=== PATIENT | female | born 1950 | race Caucasian/White ===

== ENCOUNTER 2016-10-19 14:57 | Emergency (ER) | payer MEDICARE, BC, MEDICAID ==
[2016-10-19] MEDS ORDERED: NORMAL SALINE 1000 ML 1,000 ML IV ONE (15:14)
[2016-10-19] MEDS ORDERED: ONDANSETRON HCL INJ/PF 4 MG/2 ML SDV IV ONE (15:14)
--- NOTE | 2016-10-19 15:21 | ER Document Report ---
ED General - General Chief Complaint: Nausea Stated Complaint: NAUSEA/VOMITING Time seen by provider: 15:00 Mode of Arrival: Medic Information source: Patient, Emergency Med Personnel Notes: 66-year-old female resident [facility] local penit[facility] who was sent from the penitentiary with report given to EMS personnel of 2 days of fever vomiting and altered level of consciousness. On arrival here the patient is awake and alert minimally verbal but does follow commands and move her head indicate yes and no and in appropriate fashion. To this examiner she denies fever, vomiting, chest pain, abdominal pain, or back pain. I do believe she is able to accurately convey other review of systems guarding recent events as well Physical Exam: General: Alert, appears well. HEENT: Normocephalic. Atraumatic. PERRLA. Extraocular movements intact. Oropharynx clear. Dry mucous membranes Neck: Supple. Non-tender. No JVD Respiratory: No respiratory distress. Clear and equal breath sounds bilaterally. Cardiovascular: Regular rate and rhythm. Abdominal: Normal Inspection. Soft, non-tender. No distension. Normal Bowel Sounds. One feeding tube in place to the right upper abdomen. There is an area in the left upper abdomen that may represent a recently removed tube Back: Non-tender. No deformity or step off. Sacral decubitus with dried and clean dressing in place no surrounding erythema suggest deeper infection Extremities: Contractures noted to both upper extremities. Passive range of motion is somewhat limited due to stiffness in all 4 extremities but this does not seem to produce any pain in the patient. Neurological: No cranial nerve deficits appreciated. Patient can in a garbled fashion report her name. She does move toes on both sides to command. Psychological: Normal affect. Normal Mood. Skin: Warm. Dry. Normal color. TRAVEL OUTSIDE OF THE [place] IN LAST 30 DAYS: No - Related Data Allergies/Adverse Reactions: Penicillins Allergy (Verified 08/23/16 03:50) heparin Adverse Reaction (Severe, Verified 08/28/16 14:55) Thrombocytopenia Past Medical History - Social History Smoking Status: Unknown if Ever Smoked Family History: Reviewed & Not Pertinent, Other - Unable to obtain - Past Medical History Cardiac Medical History: Reports: Hx Atrial Fibrillation, Hx Coronary Artery Disease, Hx Hypercholesterolemia, Hx Hypertension Denies: Hx Heart Attack Pulmonary Medical History: Reports: Hx Pneumonia Denies: Hx Asthma, Hx Bronchitis, Hx COPD, Hx Tuberculosis Neurological Medical History: Reports: Hx Cerebrovascular Accident. Denies: Hx Seizures Endocrine Medical History: Reports: Hx Diabetes Mellitus Type 2. Denies: Hx Diabetes Mellitus Type 1 Renal/ Medical History: Reports: Hx Kidney Stones GI Medical History: Reports: Hx Diverticulitis, Hx Gastroesophageal Reflux Disease Musculoskeltal Medical History: Reports Hx Arthritis Psychiatric Medical History: Reports: Hx Depression Past Surgical History: Reports: Hx Abdominal Surgery - PEG tube and J-tube placement, Other - G-tube, open jejunostomy tube placement. Denies: Hx Hysterectomy - Immunizations Hx Diphtheria, Pertussis, Tetanus Vaccination: No Review of Systems - Review of Systems Constitutional: denies: Chills, Fever EENT: denies: Ear pain, Throat pain Cardiovascular: denies: Chest pain Respiratory: denies: Cough, Short of breath Gastrointestinal: denies: Abdominal pain, Nausea, Vomiting Genitourinary: denies: Frequency Female Genitourinary: Post menopausal Musculoskeletal: denies: Back pain Hematologic/Lymphatic: denies: Swollen glands Neurological/Psychological: Weakness Course - Re-evaluation Re-evalutation: 10/19/16 18:34 10/19/16 18:35 Records from a recent admission are reviewed and patient spell status appears to be at her baseline. She's had no vomiting here has no fever here and has a benign abdominal exam. On her last admission was some concern about GI bleed with hemoglobin here is acceptable and on her last admission she does not seem to be a candidate for any type of aggressive intervention in any case. Patient refused CT abdomen and pelvis here and I assess her neurologic status is being adequate to be competent for that. Patient appears to be at her baseline and I believe stable for return to penitentiary - Laboratory Result Diagrams: 10/19/16 16:16 10/19/16 16:16 Laboratory results interpreted by me: 10/19/16 10/19/16 16:16 16:16 WBC 13.2 H RDW 15.0 H Absolute Neutrophils 8.9 H Sodium 146.9 H BUN 35 H Glucose 121 H - EKG Interpretation by Me Additional EKG results interpreted by me: 10/19/16 18:33 Old records from her recent admission are reviewed and patient's mental status appears to be at her baseline as described in those notes. Patient is nodding and shaking her head appropriately and based on that has refused CT abdomen and pelvis. There is some concern about GI bleeding on her last admission but her hemoglobin is acceptable now. She has a benign abdominal exam and laboratory workup has otherwise been unremarkable. The patient appears to be at her baseline Discharge - Discharge Clinical Impression: Hypernatremia CVA (cerebral vascular accident) Qualifiers: CVA mechanism: unspecified Qualified Code(s): I63.9 - Cerebral infarction, unspecified Vomiting Qualifiers: Vomiting type: unspecified Vomiting Intractability: non-intractable Condition: Stable Disposition: HOME-SNF (ED ONLY) Referrals: FELICIA TANNER MD [COMMUNITY BASED STAFF] - Follow up as needed
[2016-10-19 16:41] LABS: ABSOLUTE BASOPHILS # (AUTO) 0.1 10^3/uL (0.0-0.2); ABSOLUTE LYMPHOCYTES (AUTO) 3.2 10^3/uL (0.5-4.7); ABSOLUTE MONOCYTES (AUTO) 1.1 10^3/uL (0.1-1.4); ABSOLUTE NEUT (AUTO) 8.9 10^3/uL (1.7-8.2); BASOPHILS % (AUTO) 0.5 % (0-2); EOSINOPHILS % (AUTO) 0.2 % (0-6); HEMATOCRIT 37.4 % (36.0-47.0); HEMOGLOBIN 12.3 g/dL (12.0-15.5); HGB HCT DIFFERENCE -0.5; LYMPHOCYTES % (AUTO) 24.2 % (13-45); MEAN CORPUSCULAR HEMOGLOBIN 29.5 pg (27.0-33.4); MEAN CORPUSCULAR HGB CONC 32.8 g/dL (32.0-36.0); MEAN CORPUSCULAR VOLUME 90 fl (80-97); RED BLOOD COUNT 4.16 10^6/uL (3.72-5.28); SEGMENTED NEUTROPHILS % (AUTO) 67.1 % (42-78); WHITE BLOOD COUNT 13.2 10^3/uL (4.0-10.5)
[2016-10-19 16:55] LABS: ALANINE AMINOTRANSFERASE 19 U/L (9-52); ALBUMIN 4.5 g/dL (3.5-5.0); ALKALINE PHOSPHATASE 110 U/L (38-126); ANION GAP 14 (5-19); ASPARTATE AMINO TRANSFERASE 24 U/L (14-36); BILIRUBIN,TOTAL 0.5 mg/dL (0.2-1.3); BLOOD UREA NITROGEN 35 mg/dL (7-20); CALCIUM 10.2 mg/dL (8.4-10.2); CARBON DIOXIDE 30 mmol/L (22-30); CHLORIDE 103 mmol/L (98-107); CREATININE RESULT 0.58 mg/dL (0.52-1.25); GLUCOSE 121 mg/dL (75-110); MAGNESIUM 2.1 mg/dL (1.6-2.3); POTASSIUM 3.7 mmol/L (3.6-5.0); SODIUM 146.9 mmol/L (137-145); TOTAL PROTEIN 7.7 g/dL (6.3-8.2)
[2016-10-19 23:09] VITALS: BP 149/64
== END 2016-10-19 23:30 ==
LOC: ER 14:57
DX: I63.9 Cerebral infarction, unspecified (principal); E87.0 Hyperosmolality and hypernatremia; R11.2 Nausea with vomiting, unspecified; I48.91 Unspecified atrial fibrillation; I25.10 Atherosclerotic heart disease of native coronary artery without angina pectoris; E78.00 Pure hypercholesterolemia, unspecified; I10 Essential (primary) hypertension; Z86.73 Personal history of transient ischemic attack (TIA), and cerebral infarction without residual deficits; Z88.0 Allergy status to penicillin; Z87.442 Personal history of urinary calculi; E11.9 Type 2 diabetes mellitus without complications; Z93.1 Gastrostomy status; Z93.4 Other artificial openings of gastrointestinal tract status
CPT/HCPCS: 99283; 96361; 96374; 36415; 87040; 83690; 83735; 85025; 80053; J2405; J7030

== ENCOUNTER 2016-11-13 13:20 | Emergency (ER) | payer MEDICARE, BC, MEDICAID ==
[2016-11-13] MEDS ORDERED: NORMAL SALINE 1000 ML 1,000 ML IV ONE (15:13)
--- NOTE | 2016-11-13 17:42 | ER Document Report ---
ED General - General Chief Complaint: Rash Stated Complaint: RASH TRAVEL OUTSIDE OF THE [place] IN LAST 30 DAYS: No - HPI Patient complains to provider of: rash Notes: Patient coming in [facility] for evaluation of her rash on her lower extremities. According to nursing paperwork lab work was performed today patient was started on Levaquin which was administered through her feeding tube. Apparently patient had a rash develop further this morning. Patient has history multiple CVAs also nonverbal. Patient otherwise has normal vital signs no signs of obvious distress upon entering the room - Related Data Allergies/Adverse Reactions: Penicillins Allergy (Verified 08/23/16 03:50) heparin Adverse Reaction (Severe, Verified 08/28/16 14:55) Thrombocytopenia Past Medical History - Social History Smoking Status: Unknown if Ever Smoked Family History: Reviewed & Not Pertinent, Other - Unable to obtain - Past Medical History Cardiac Medical History: Reports: Hx Atrial Fibrillation, Hx Coronary Artery Disease, Hx Hypercholesterolemia, Hx Hypertension Denies: Hx Heart Attack Pulmonary Medical History: Reports: Hx Pneumonia Denies: Hx Asthma, Hx Bronchitis, Hx COPD, Hx Tuberculosis Neurological Medical History: Reports: Hx Cerebrovascular Accident. Denies: Hx Seizures Endocrine Medical History: Reports: Hx Diabetes Mellitus Type 2. Denies: Hx Diabetes Mellitus Type 1 Renal/ Medical History: Reports: Hx Kidney Stones GI Medical History: Reports: Hx Diverticulitis, Hx Gastroesophageal Reflux Disease Musculoskeltal Medical History: Reports Hx Arthritis Psychiatric Medical History: Reports: Hx Depression Past Surgical History: Reports: Hx Abdominal Surgery - PEG tube and J-tube placement, Other - G-tube, open jejunostomy tube placement. Denies: Hx Hysterectomy - Immunizations Hx Diphtheria, Pertussis, Tetanus Vaccination: No Review of Systems - Review of Systems -: Yes ROS unobtainable due to patient's medical condition Physical Exam - Vital signs Vitals: Temp Pulse Resp BP Pulse Ox 97.7 F 77 20 105/40 L 96 11/13/16 13:25 11/13/16 13:25 11/13/16 13:25 11/13/16 13:25 11/13/16 13:25 Interpretation: Normal - General General appearance: Alert, Other - Nonverbal - HEENT Head: Normocephalic, Atraumatic Eyes: Normal - Respiratory Respiratory status: No respiratory distress Chest status: Nontender Breath sounds: Normal Chest palpation: Normal - Cardiovascular Rhythm: Regular Heart sounds: Normal auscultation Murmur: No - Abdominal Inspection: Normal Distension: No distension Bowel sounds: Normal Tenderness: Nontender Organomegaly: No organomegaly - Back Back: Normal, Nontender - Extremities General upper extremity: Normal inspection, Nontender, Normal color, Normal ROM , Normal temperature General lower extremity: Normal inspection, Nontender, Normal color, Normal ROM , Normal temperature, Normal weight bearing. No: Regine's sign - Neurological Neuro grossly intact: Yes - normal per family at bedside Sensory: Normal - Skin Skin Temperature: Warm Skin Moisture: Dry Skin Color: Normal Character of irregularity: Other - Patient has bilateral hives and posterior of her legs. More likely this is from contact with a irritant. Course - Re-evaluation Re-evalutation: 11/13/16 20:35 Patient with hives more likely from contact with them irritant. Family at bedside explained more likely due to possible bedsheets and possibly the patient sitting in a wet bed. Nothing this is a drug rash at this time. Lab work was reviewed showing some acute renal insufficiency. More likely this is due to dehydration as to the family states they have held the patient's 2 feeds for the last 3 days. We'll discharge patient home after IV fluid boluses. Otherwise no signs of sepsis patient will be discharged home - Vital Signs Vital signs: Temp Pulse Resp BP Pulse Ox 98.8 F 82 14 117/41 L 100 11/13/16 20:03 11/13/16 20:03 11/13/16 20:03 11/13/16 20:03 11/13/16 20:03 Discharge - Discharge Clinical Impression: acute renal insufficiency/ dehydration, Do not resuscitate Contact dermatitis Qualifiers: Contact dermatitis type: unspecified Contact dermatitis trigger: unspecified trigger Qualified Code(s): L25.9 - Unspecified contact dermatitis, unspecified cause Condition: Good Disposition: HOME, SELF-CARE Instructions: Acute Urticaria ([facility]) Additional Instructions: Patient's lab work reviewed. Patient does have an elevation in her BUN/ creatinine more likely this is due to dehydration. Family members report that the patient's tooth these have been on hold for last 3 days. These recommend restarting tube feeds pain given the patient plenty of fluids through her tubes. Patient was hydrated here in ER with IV fluids. Of rash is consistent with a contact dermatitis. This is possibly from patient urinating or sitting in wet bedsheets or possible that she detergent. Otherwise not consistent with drug reaction. Please continue to follow-up on patient's cultures.
[2016-11-13 20:06] VITALS: BP 117/41
== END 2016-11-13 22:22 | disposition home or self-care (01) ==
LOC: ER 13:20
DX: N28.9 Disorder of kidney and ureter, unspecified (principal); E86.0 Dehydration; L25.9 Unspecified contact dermatitis, unspecified cause; R21 Rash and other nonspecific skin eruption
CPT/HCPCS: 99284; 96360; 87804; 71010; J7030

== ENCOUNTER 2016-11-24 09:30 | Day surgery (SDC) | payer MEDICARE, BC, MEDICAID ==
--- NOTE | 2016-11-20 11:03 | PDOC PROGRESS REPORT ---
Subjective Progress Note for:: 11/20/16 Subjective:: Patient was seen in the office, she was scheduled for EGD with PEG change. We obtained consent from POA via a phone call. Her POA is her daughter, she is in another [place] She gave consent via the phone that was witnessed by 2 individuals. She told her aunt ( patient's sister) to sign the consent form; later on , it came to our attention and the aunt rescinded her signature. [facility] was called and we were going to obtain consent directly from POA on day of procedure. Instructions were provided to group home with regards to NPO status, time of arrival in the pre- procedure phone call that was made by Faiza Fuller RN. This was similarly witnessed. Patient was sent in today and we were informed that tube feedings had not been stopped. We are therefore unable to proceed with the procedure today and it will need to be rescheduled. Physical Exam Vital Signs: Intake & Output 11/19/16 11/20/16 11/21/16 06:59 06:59 06:59 Weight 66.68 kg Assessment & Plan - Diagnosis (1) Malfunction of percutaneous endoscopic gastrostomy (PEG) tube Plan: We will need to reschedule her procedure. The tube certainly looks worse for wear,it is still able to be used this is non emergent, instructions will be re-provided to the group home.
[~2016-11-24 09:30] MED LIST: DIPHENHYDRAMINE HCL 50 MG/ML VIAL ONE; EPINEPHRINE INJ 1 MG/10 ML DISP.SYRIN ONE; FENTANYL CITRATE INJ/PF 100 MCG/2 ML AMPUL ONE; FLUMAZENIL INJ 0.5 MG/5 ML VIAL IV ONE; GLUCAGON,HUMAN RECOMB 1 MG INJ ONE; NALOXONE HCL INJ/PF 0.4 MG/1 ML SDV ONE; ONDANSETRON HCL INJ/PF 4 MG/2 ML SDV ONE; PROMETHAZINE HCL INJ 25 MG/1 ML VIAL ONE
[2016-11-24] MEDS: MIDAZOLAM 2 MG/2 ML INJ ONE ×2 (10:35→10:40)
--- NOTE | 2016-11-24 11:00 | Operative Report ---
Operative Report DATE OF SURGERY: 11/24/16 Operative Report: The risks benefits and alternatives of the procedure explained to the patient in detail and informed consent is obtained that GIF Olympus video scope was inserted into the patient's mouth and hypopharynx the esophagus is identified intubated and insufflated the scope was then advanced through the esophagus stomach and duodenum retroflexion maneuver is done the esophagus stomach and first and second portions of the duodenum examined PREOPERATIVE DIAGNOSIS: Dysfunctional feeding tube. Patient scheduled for potential mash filter cloth changer. POSTOPERATIVE DIAGNOSIS: Patient has a jejunostomy tube. The tube that is present is not within the gastric cavity. I was not able to find the and of the tube. It appears that it was previously change by interventional radiology under radiographic guidance. The area of the jejunostomy stoma was cleaned. The original jejunostomy tube is kept in place OPERATION: Diagnostic EGD SURGEON: CASEY MANNING ANESTHESIA: Moderate Sedation - 3 mg Versed TISSUE REMOVED OR ALTERED: None. COMPLICATIONS: None ESTIMATED BLOOD LOSS: none. INTRAOPERATIVE FINDINGS: Gastritis. Jejunostomy site and jejunostomy tube left intact. This could be changed with interventional radiology with potential guidewire along with radiographic guidance. PROCEDURE: Patient tolerated the endoscopic part of the procedure well No immediate postprocedure complications are noted. Patient is discharged back to the retirement. Discharge date 11/24/2016. Discharge diet: Resume feeds through jejunostomy tube Discharge activity: As tolerated shelter physician will need to get consultation with interventional radiology to arrange changing of the jejunostomy tube under radiographic guidance ;the tube will also need to be pre-ordered.
[2016-11-24 11:53] VITALS: BP 150/49
== END 2016-11-24 13:00 | disposition home or self-care (01) ==
LOC: END 09:30
PROVIDERS: ATTEND Internal Medicine Gastroenterology
PROC: 0DJD8ZZ Inspection of Lower Intestinal Tract, Via Natural or Artificial Opening Endoscopic (ICD-10-PCS; principal; 2016-11-24 10:00)
DX: K94.23 Gastrostomy malfunction (principal); I10 Essential (primary) hypertension; E11.9 Type 2 diabetes mellitus without complications; Z86.73 Personal history of transient ischemic attack (TIA), and cerebral infarction without residual deficits; Z79.899 Other long term (current) drug therapy
CPT/HCPCS: 43235; 82962; J2250; J3010; J0171; J1200; J1610; J2310; J2405; J2550; J3490

== ENCOUNTER 2016-12-02 12:57 | Inpatient (IN) | payer MEDICARE, BC, MEDICAID ==
[2016-12-02 16:12] LABS: ABSOLUTE BASOPHILS # (AUTO) 0.1 10^3/uL (0.0-0.2); ABSOLUTE EOSINOPHILS # (AUTO) 0.5 10^3/uL (0.0-0.6); ABSOLUTE LYMPHOCYTES (AUTO) 3.2 10^3/uL (0.5-4.7); ABSOLUTE MONOCYTES (AUTO) 0.7 10^3/uL (0.1-1.4); ABSOLUTE NEUT (AUTO) 7.5 10^3/uL (1.7-8.2); BASOPHILS % (AUTO) 0.5 % (0-2); EOSINOPHILS % (AUTO) 3.9 % (0-6); HEMATOCRIT 36.2 % (36.0-47.0); HEMOGLOBIN 11.6 g/dL (12.0-15.5); HGB HCT DIFFERENCE -1.4; LYMPHOCYTES % (AUTO) 26.8 % (13-45); MEAN CORPUSCULAR HEMOGLOBIN 30.3 pg (27.0-33.4); MEAN CORPUSCULAR HGB CONC 32.1 g/dL (32.0-36.0); MEAN CORPUSCULAR VOLUME 94 fl (80-97); MONOCYTES % (AUTO) 5.5 % (3-13); RED BLOOD COUNT 3.84 10^6/uL (3.72-5.28); RED CELL DISTRIBUTION WIDTH 16.1 % (11.5-14.0); SEGMENTED NEUTROPHILS % (AUTO) 63.3 % (42-78); WHITE BLOOD COUNT 11.9 10^3/uL (4.0-10.5)
[2016-12-02 16:32] LABS: ALANINE AMINOTRANSFERASE 19 U/L (9-52); ALBUMIN 3.6 g/dL (3.5-5.0); ALKALINE PHOSPHATASE 80 U/L (38-126); ANION GAP 11 (5-19); ASPARTATE AMINO TRANSFERASE 17 U/L (14-36); BILIRUBIN,TOTAL 0.4 mg/dL (0.2-1.3); BLOOD UREA NITROGEN 43 mg/dL (7-20); CALCIUM 9.4 mg/dL (8.4-10.2); CARBON DIOXIDE 31 mmol/L (22-30); CHLORIDE 123 mmol/L (98-107); CREATININE RESULT 0.36 mg/dL (0.52-1.25); GLUCOSE 134 mg/dL (75-110); POTASSIUM 3.7 mmol/L (3.6-5.0); SODIUM 164.8 mmol/L (137-145)
[2016-12-02 16:44] LABS: TROPONIN I 0.025 ng/mL
[2016-12-02 17:01] LABS: APPEARANCE,URINE CLOUDY; BILIRUBIN,URINE NEGATIVE (NEGATIVE); GLUCOSE, URINE NEGATIVE (NEGATIVE); KETONES,URINE NEGATIVE (NEGATIVE); LEUKOCYTE ESTERASE,URINE MODERATE (NEGATIVE); NITRITE,URINE NEGATIVE (NEGATIVE); PROTEIN,URINE 100 mg/dL (NEGATIVE); URINE SPECIFIC GRAVITY 1.017; UROBILINOGEN,URINE NEGATIVE mg/dL (<2.0)
[2016-12-02] MEDS ORDERED: CEFTRIAXONE INJ 1000 MG VIAL IV ONE (20:31)
--- NOTE | 2016-12-02 20:34 | ER Document Report ---
[id number] Information source: Outside Facility Records TRAVEL OUTSIDE OF THE [place] IN LAST 30 DAYS: No - HPI Patient complains to provider of: Other - hematuria Onset: This afternoon Associated symptoms: Other - see above <DEJAN ACEVES - Last Filed: 12/07/16 15:00> - General Chief Complaint: Blood in Catheter Stated Complaint: URINARY PROBLEM Notes: 66 year old female with history of a CVA (patient is non-verbal) presents to the ED via [facility] from [facility] with almost "black" urine as reported from the [facility] nurse. When asked if the patient is sick, if she is in any pain, and if she knows where she is, the patient nods yes. Patient's primary care provider is Dr. Riddle. A comprehensive HPI is unobtainable secondary to the patient's status. (DEJAN ACEVES) - Related Data Allergies/Adverse Reactions: Penicillins Allergy (Intermediate, Verified 11/24/16 09:43) Unknown reaction heparin Adverse Reaction (Severe, Verified 11/19/16 15:41) Thrombocytopenia Home Medications: Current Home Medications Amlodipine Besylate [Norvasc 10 mg Tablet] 10 mg JT DAILY 12/03/16 [History] Aspirin [Aspirin 81 mg Chewable Tablet] 81 mg JT DAILY 12/03/16 [History] Carvedilol [Coreg 25 mg Tablet] 25 mg JT Q12 12/03/16 [History] Clonidine HCl [Catapres 0.3 mg Tablet] 0.3 mg JT Q8 12/03/16 [History] Collagenase Clostridium Hist. [Santyl Ointment 30 gm] 1 applic TOP DAILYP PRN [History] Ferrous Sulfate [Ferrous Sulfate Liquid 300 mg/5 ml Udcup] 300 mg JT BID [History] Hydralazine HCl [Apresoline 50 mg Tablet] 150 mg JT Q8 12/03/16 [History] Insulin Aspart [Novolog Insulin (Aspart) 100 unit/mL] 0 unit SQ .PERSLIDINGSCALE 12/03/16 [History] Lactulose [Cephulac Syrup 20 gm/30 ml Udcup] 10 gm JT QHS 12/03/16 [History] Lansoprazole [Prevacid 30 mg Odt Tablet] 30 mg JT BID 12/03/16 [History] Lorazepam [Ativan 0.5 mg Tablet] 0.5 mg JT Q4HP PRN 12/03/16 [History] Losartan Potassium [Cozaar 100 mg Tablet] 100 mg JT DAILY 12/03/16 [History] Metformin HCl [Glucophage] 500 mg JT Q12 12/03/16 [History] Multivitamin [Multivitamins] 1 each JT DAILY 12/03/16 [History] Ondansetron HCl [Zofran] 4 mg JT Q6HP PRN 12/03/16 [History] Oxycodone HCl [Oxy-Ir 5 mg Tablet] 5 mg PO Q6HP PRN 12/03/16 [History] Polyvinyl Alcohol [Liquitears] 1 drop OU BID 12/03/16 [History] Protein Supplement [Promod] 30 ml JT Q8 12/03/16 [History] Past Medical History - General Information source: Outside Facility Records - Social History Smoking Status: Unknown if Ever Smoked Family History: Reviewed & Not Pertinent, Other - Unable to obtain - Past Medical History Cardiac Medical History: Reports: Hx Atrial Fibrillation, Hx Hypercholesterolemia, Hx Hypertension Denies: Hx Coronary Artery Disease, Hx Heart Attack Pulmonary Medical History: Reports: Hx Pneumonia Denies: Hx Asthma, Hx Bronchitis, Hx COPD, Hx Tuberculosis Neurological Medical History: Reports: Hx Cerebrovascular Accident - HEMIPARESIS , APHASIA, DYSPHAGIA, HEMIPLAGIA. Denies: Hx Seizures Endocrine Medical History: Reports: Hx Diabetes Mellitus Type 2. Denies: Hx Diabetes Mellitus Type 1 Renal/ Medical History: Reports: Hx Kidney Stones GI Medical History: Reports: Hx Diverticulitis, Hx Gastroesophageal Reflux Disease Musculoskeltal Medical History: Reports Hx Arthritis Psychiatric Medical History: Reports: Hx Depression Past Surgical History: Reports: Hx Abdominal Surgery - PEG tube and J-tube placement, Other - G-tube, open jejunostomy tube placement. Denies: Hx Hysterectomy - Immunizations Hx Diphtheria, Pertussis, Tetanus Vaccination: Yes - 02/08/15 Hx Pneumococcal Vaccination: 07/11/13 <DEJAN ACEVES - Last Filed: 12/07/16 15:00> Review of Systems - Review of Systems -: Yes ROS unobtainable due to patient's medical condition <DEJAN ACEVES - Last Filed: 12/07/16 15:00> Physical Exam - General General appearance: Alert - Patient is apasic and non-verbal. Patient shakes head and blinks eyes in response to verbal stimuli. In distress: None - HEENT Head: Normocephalic, Atraumatic Eyes: Normal Extraocular movements intact: Yes Pupils: PERRL - Respiratory Respiratory status: No respiratory distress Breath sounds: Normal - Cardiovascular Rhythm: Regular Heart sounds: Normal auscultation - Abdominal Inspection: Normal - Back Back: Normal - Extremities General upper extremity: Normal inspection General lower extremity: Normal inspection - Neurological Neuro grossly intact: Yes Cognition: Normal [place] Coma Scale Eye Opening: Spontaneous Estefany Coma Scale Verbal: Oriented Estefany Coma Scale Motor: Obeys Commands Estefany Coma Scale Total: 15 Speech: Other - Patient is apasic and only nodding her head and blinking her eyes to verbal stimuli. - Skin Skin Temperature: Warm Skin Moisture: Dry Skin Color: Normal <DEJAN ACEVES - Last Filed: 12/07/16 15:00> - Vital signs Vitals: Temp Pulse Resp BP Pulse Ox 99.2 F 86 20 156/60 H 96 12/02/16 13:11 12/02/16 13:11 12/02/16 13:11 12/02/16 13:11 12/02/16 13:11 (PNIA JOYA) Course - Laboratory Result Diagrams: 12/02/16 16:00 12/02/16 16:00 <PINA JOYA - Last Filed: 12/02/16 21:11> - Laboratory Result Diagrams: 12/04/16 04:26 12/05/16 10:15 - Consults Dr. Gómez Time consulted: 20:30 <DEJAN ACEVES - Last Filed: 12/07/16 15:00> - Re-evaluation Re-evalutation: 12/02/16 20:56 I personally performed the services described in the documentation, reviewed and edited the documentation which was dictated to my scribe in my presence, and it accurately records my words and actions. Patient is nonverbal hemiplegic from a stroke and DNR. [facility] for [facility] and [facility] is a large amount hematuria. Again she is nonverbal. She is normotensive and not tachycardic and is afebrile on examination flank shake her head yes and no. Urine is infected in addition to large amount hematuria CT scan shows a stable 10 mm stone in new 9 mm stone either of those have hydronephrosis associated with them. She is not in acute renal failure gave her Rocephin history of allergies penicillin comfortable given Rocephin given her fluids. Going to admit her to the hospital spoke with Dr. Gómez further assessment and evaluation. (PINA JOYA) - Vital Signs Vital signs: Temp Pulse Resp BP Pulse Ox 98.3 F 109 H 14 115/69 96 12/07/16 12:29 12/07/16 12:29 12/07/16 14:00 12/07/16 12:29 12/07/16 12:29 (PINA JOYA) (DEJAN ACEVES) - Laboratory Laboratory results interpreted by va: 12/02/16 12/02/16 12/02/16 16:00 16:00 16:35 WBC 11.9 H Hgb 11.6 L RDW 16.1 H Sodium 164.8 H Chloride 123 H Carbon Dioxide 31 H BUN 43 H Creatinine 0.36 L Glucose 134 H Total Protein 6.0 L Urine Protein 100 H Urine Blood MODERATE H Ur Leukocyte Esterase MODERATE H Urine Ascorbic Acid 40 H (PINA JOYA) (DEJAN ACEVES) - Consults Dr. Gómez Reason for consultation: 12/02/16 20:33 Dr. Gómez was paged; no response. 12/02/16 21:59 Dr. Gómez has agreed to admit the patient. (DEJAN ACEVES) Critical Care Note - Critical Care Note Total time excluding time spent on procedures (mins): 45 <PINA JOYA - Last Filed: 12/02/16 21:11> Discharge - Discharge Admitting Provider: Hospitalist Unit Admitted: Telemetry <PINA JOYA - Last Filed: 12/02/16 21:11> <DEJAN ACEVES - Last Filed: 12/07/16 15:00> - Discharge Clinical Impression: acute hemorrhagic UTI, bilateral nephrolithiasis, Hypernatremia Scribe Documentation - Scribe Written by Scribe:: Mauro Alfred, 12/02/[id number] acting as scribe for :: Boris <DEJAN ACEVES - Last Filed: 12/07/16 15:00>
[2016-12-02] MEDS ORDERED: 1/2 NORMAL SALINE 1,000 ML IV ONE (20:57)
[2016-12-03] MEDS ORDERED: ACETAMINOPHEN SOLN 325 MG/10.15 ML UDCUP JT PRN (01:19)
[2016-12-03] MEDS ORDERED: 1/2 NORMAL SALINE 1,000 ML IV ONE (01:24)
[2016-12-03 01:49] LABS: ANION GAP 14 (5-19); BLOOD UREA NITROGEN 42 mg/dL (7-20); CALCIUM 9.3 mg/dL (8.4-10.2); CARBON DIOXIDE 26 mmol/L (22-30); CHLORIDE 125 mmol/L (98-107); CREATININE RESULT 0.46 mg/dL (0.52-1.25); GLUCOSE 135 mg/dL (75-110); POTASSIUM 3.6 mmol/L (3.6-5.0); SODIUM 165.1 mmol/L (137-145)
[2016-12-03] MEDS ORDERED: AZTREONAM INJ 1 GM VIAL ONE (05:13)
[2016-12-03] MEDS ORDERED: AZTREONAM INJ 1 GM VIAL IV SCH (06:00)
[2016-12-03 06:30] LABS: ABSOLUTE BASOPHILS # (AUTO) 0.1 10^3/uL (0.0-0.2); ABSOLUTE EOSINOPHILS # (AUTO) 0.4 10^3/uL (0.0-0.6); ABSOLUTE LYMPHOCYTES (AUTO) 2.4 10^3/uL (0.5-4.7); ABSOLUTE MONOCYTES (AUTO) 0.6 10^3/uL (0.1-1.4); ABSOLUTE NEUT (AUTO) 7.9 10^3/uL (1.7-8.2); BASOPHILS % (AUTO) 0.6 % (0-2); EOSINOPHILS % (AUTO) 3.2 % (0-6); HEMATOCRIT 39.1 % (36.0-47.0); HEMOGLOBIN 12.3 g/dL (12.0-15.5); HGB HCT DIFFERENCE -2.2; LYMPHOCYTES % (AUTO) 20.9 % (13-45); MEAN CORPUSCULAR HEMOGLOBIN 29.9 pg (27.0-33.4); MEAN CORPUSCULAR HGB CONC 31.6 g/dL (32.0-36.0); MEAN CORPUSCULAR VOLUME 95 fl (80-97); MONOCYTES % (AUTO) 5.6 % (3-13); RED BLOOD COUNT 4.14 10^6/uL (3.72-5.28); RED CELL DISTRIBUTION WIDTH 16.2 % (11.5-14.0); SEGMENTED NEUTROPHILS % (AUTO) 69.7 % (42-78); WHITE BLOOD COUNT 11.3 10^3/uL (4.0-10.5)
[2016-12-03 06:43] LABS: ANION GAP 12 (5-19); BLOOD UREA NITROGEN 41 mg/dL (7-20); CALCIUM 9.3 mg/dL (8.4-10.2); CARBON DIOXIDE 29 mmol/L (22-30); CHLORIDE 125 mmol/L (98-107); CREATININE RESULT 0.46 mg/dL (0.52-1.25); GLUCOSE 136 mg/dL (75-110); POTASSIUM 3.6 mmol/L (3.6-5.0); SODIUM 166.2 mmol/L (137-145)
[2016-12-03] MEDS ORDERED: FONDAPARINUX SODIUM INJ 2.5 MG/0.5 ML DISP.SYRIN SUBCUT SCH (08:00)
[2016-12-03] MEDS ORDERED: 1/2 NORMAL SALINE 1,000 ML IV PRN (08:13)
[2016-12-03] MEDS ORDERED: (PENDING PHARMACY ID) (Ondansetron Hcl [Zofran] 4 MG) PEG PRN (08:17)
[2016-12-03] MEDS ORDERED: LORAZEPAM 0.5 MG TABLET PEG PRN (08:17)
[2016-12-03] MEDS ORDERED: OXYCODONE HCL IR 5 MG TABLET JT PRN (08:17)
[2016-12-03] MEDS ORDERED: ONDANSETRON 4 MG TAB.RAPDIS PEG PRN (08:57)
[2016-12-03] MEDS ORDERED: (PENDING PHARMACY ID) (Multivitamin/Iron/Folic Acid [Centrum Complete Multivit Tab] 1 EACH PEG SCH (10:00)
[2016-12-03] MEDS ORDERED: MULTIVITAMIN ORAL LIQUID 60 ML PEG SCH (10:00)
--- NOTE | 2016-12-03 11:58 | PDOC H&P ---
History of Present Illness Admission Date/PCP: 12/02/16 21:45 FELICIA TANNER MD Patient complains of: Black urine History of Present Illness: YANCI MAGALLANES is a 66 year old female, aphasic and bedridden from prior stroke, along with hypertension and type II diabetes mellitus, who receives nutrition through jejunostomy tube, which is directed through an indwelling gastrostomy tube, who presents to the emergency room for evaluation of above complaint. Patient has been discussed with emergency room physician who evaluated the patient. Patient is aphasic and while she does look about on occasion, is otherwise minimally interactive with her surroundings and thus is able to provide no history whatsoever in terms of acute or chronic events, review of systems, personal habits, family history, etc. No friends or family are present. Old inpatient records are reviewed. noted to have "almost black" urine per [facility] staff report. Has known underlying nephrolithiasis. No further information available this point in time. Laboratory results are listed in [facility] and are reviewed. X-ray summary results are listed below, with full report(s) reviewed. . Social history/personal habits: Current resident of [facility].No further information available this point in time. Allergies/adverse reactions NKDA. Home medications are reviewed from the medication list from the [facility] and are to be reconciled by nursing staff in [facility]. Home medications initially autopopulated into [facility] may not accurately reflect patient's true medications, dosages, and/or frequencies. REVIEW OF SYSTEMS: See history and present illness.No further information available this point in time. PHYSICAL EXAMINATION: 5 feet 4 inches tall. 63.5 kg. BMI 24 kg/m.Temperature 99.0. Blood pressure 159/79. Respirations are 16 and unlabored. 96% saturation on room air. Pulse 99 and regular. Well-nourished well-developed though chronically ill-appearing female who appears a bit older than her stated age. She is awake and looking about the room a bit, but otherwise is minimally interactive with her surroundings. However, when I asked her several times if she were having pain she did briefly shake her head "no." Skin is warm and dry. No grossly obvious evidence of rash in areas of skin examined. No subcutaneous nodules palpated. ENT: [Hearing difficult to adequately evaluate due to her current mental status. Eyes: No scleral icterus. Pupils equal and reactive to light at 4 mm. Widener conjunctivae. Neck is nontender to gentle palpation. Midline trachea. No palpable thyroid nodule mass enlargement or tenderness. Lymphatic: No palpable cervical or clavicular nodes. Neck and lymphatic exams limited by patient body habitus. Psychiatric: Can't be adequately evaluated due to her current status. Lungs: Auscultation reveals clear and equal breath sounds bilaterally. No use of accessory respiratory muscles. Cardiovascular: Heart regular rate and rhythm, without gallop murmur or rub. No carotid or abdominal aortic bruits. No ankle or pedal edema. Faintly palpable dorsalis pedis pulses. Abdomen: soft, , slightly distended nontender with positive bowel sounds. Unable to adequately evaluate abdomen for masses or organomegaly due to distention. Gastrostomy/jejunostomy tube site unremarkable in appearance, without evidence of infection or excessive drainage. Dark.Red bloody urine in her Mederos catheter drainage tubing and bag. Extremities: Feet are warm and dry. No calf tenderness to compression. No grossly obvious visual evidence of calf swelling. Gentle manipulation of lower extremities fails to reveal any obvious evidence of injury or instability to knees hips or ankles. Neurologic: Patellar reflexes absent. Absent Babinski. Light touch can't be determined due to her current status.. Will not dorsiflex or plantarflex her feet or vascular ultrasound technologist fingers despite a number of request. Past Medical History Cardiac Medical History: Reports: Atrial Fibrillation, Hyperlipidema, Hypertension Denies: Coronary Artery Disease, Myocardial Infarction Pulmonary Medical History: Reports: Pneumonia Denies: Asthma, Bronchitis, Chronic Obstructive Pulmonary Disease (COPD), Tuberculosis Neurological Medical History: Denies: Seizures Endocrine Medical History: Reports: Diabetes Mellitus Type 2 Denies: Diabetes Mellitus Type 1 GI Medical History: Reports: Diverticulitis, Gastroesophageal Reflux Disease Musculoskeltal Medical History: Reports: Arthritis Psychiatric Medical History: Reports: Depression Hematology: Reports: Anemia Past Surgical History Past Surgical History: Reports: Other - G-tube, open jejunostomy tube placement Denies: Hysterectomy Social History Information Source: Emergency Med Personnel, [facility] Records Lives with: [facility] Smoking Status: Unknown if Ever Smoked Frequency of Alcohol Use: None Hx Recreational Drug Use: No Drugs: None Hx Prescription Drug Abuse: No - Advance Directive Resuscitation Status: Do Not Resuscitate - Portable DO NOT RESUSCITATE document is on chart. Will follow this directive. Surrogate healthcare decision maker:: uncertain at this point in time Family History Family History: Reviewed & Not Pertinent, Other - Unable to obtain Parental Family History Reviewed: No - No information available this point in time. Children Family History Reviewed: No - No information available this point in time. Sibling(s) Family History Reviewed.: No - No information available this point in time. Medication/Allergy Home Medications: Lorazepam [Ativan 0.5 mg Tablet] 0.5 mg SL Q4HP PRN #30 tablet 12/09/16 Allergies/Adverse Reactions: Penicillins Allergy (Intermediate, Verified 11/24/16 09:43) Unknown reaction heparin Adverse Reaction (Severe, Verified 11/19/16 15:41) Thrombocytopenia Physical Exam Vital Signs: Temp Pulse Resp BP Pulse Ox 98.0 F 93 20 164/61 H 98 12/02/16 18:36 12/02/16 18:36 12/02/16 18:36 12/02/16 18:36 12/02/16 18:36 Results Impressions: Abdomen/Pelvis CT 12/02/16 19:10 IMPRESSION: New 9 mm calcified stone in the right renal pelvis. Persistent 10 mm stone is present in the left renal pelvis. No acute ureteral stone or urinary obstruction. Assessment & Plan - Diagnosis (1) Hematuria Is this a current diagnosis for this admission?: YesPlan: Likely secondary to combination of nephrolithiasis along with urinary tract infection. (2) Hypernatremia Is this a current diagnosis for this admission?: YesPlan: Likely due to underlying dehydration. Serial chemistry. Gradual lowering of her serum sodium with appropriate IV fluids and free water through her enteral feeding tube. (3) UTI (urinary tract infection) Qualifiers: Urinary tract infection type: site unspecified Hematuria presence: with hematuria Qualified Code(s): N39.0 - Urinary tract infection, site not specified Is this a current diagnosis for this admission?: YesPlan: Blood and urine cultures have been obtained. IV antibiotics. Knee high SCDs for DVT prophylaxis; with underlying hematuria, will forego Lovenox or heparin at this point in time.] Time spent in evaluation and management of patient: 53 minutes. (4) Aphasia as late effect of cerebrovascular accident Is this a current diagnosis for this admission?: Yes (5) DNR (do not resuscitate) Is this a current diagnosis for this admission?: YesPlan: Portable document on chart. Will honor this directive. (6) Gastrostomy tube in place Is this a current diagnosis for this admission?: Yes (7) Jejunostomy tube present Is this a current diagnosis for this admission?: YesPlan: Dietary consult for enteral feeding tube recommendation. - Inpatient Certification Based on my medical assessment, after consideration of the patient's comorbidities, presenting symptoms, or acuity I expect that the services needed warrant INPATIENT care.: Yes I certify that my determination is in accordance with my understanding of Medicare's requirements for reasonable and necessary INPATIENT services [42 CFR 412.3e].: Yes Medical Necessity: Significant Comorbidiites Make Outpatient Treatment Too Risky , Need Close Monitoring Due to Risk of Patient Decompensation, Need For IV Fluids, Risk of Complication if Not Cared For in Hospital Post Hospital Care: D/C or Transfer Summary
[2016-12-03] MEDS: FERROUS SULFATE LIQUID 300 MG/5 ML UDC JT SCH ×2 (12:06→17:30)
[2016-12-03] MEDS: CARVEDILOL 12.5 MG TABLET JT SCH ×2 (12:07→22:49)
[2016-12-03] MEDS: AMLODIPINE BESYLATE 10 MG TABLET JT SCH (12:07)
[2016-12-03] MEDS: POLYVINYL ALCOHOL 1.4% OPH SOLN 15 ML OU SCH ×2 (12:07→17:30)
[2016-12-03] MEDS: ASPIRIN 81 MG TABLET, CHEWABLE JT SCH (12:07)
[2016-12-03] MEDS: LOSARTAN POTASSIUM 50 MG TABLET JT SCH (12:07)
[2016-12-03] MEDS: ERTAPENEM SODIUM 1 GM in NORMAL SALINE 50 ML IV SCH (12:31)
[2016-12-03] MEDS ORDERED: PROTEIN SUPPLEMENT PEG SCH (14:00)
--- NOTE | 2016-12-03 14:26 | PDOC PROGRESS REPORT ---
Subjective Progress Note for:: 12/03/16 Subjective:: The patient was seen earlier today on rounds. The patient is unable to provide any history. The patient has had no episodes of vomiting or diarrhea. Physical Exam Vital Signs: Temp Pulse Resp BP Pulse Ox 99.5 F 102 H 15 188/84 H 98 12/03/16 08:08 12/03/16 08:08 12/03/16 08:08 12/03/16 08:08 12/03/16 08:08 Intake & Output 12/01/16 12/02/16 12/03/16 23:59 23:59 23:59 Intake Total 110 Output Total 400 Balance -290 Weight 63.5 kg General appearance: PRESENT: disheveled. ABSENT: well-nourished Exam: Frail, chronically ill-appearing. Head exam: PRESENT: atraumatic, normocephalic Eye exam: PRESENT: conjunctiva pink, EOMI, PERRLA. ABSENT: scleral icterus Ear exam: PRESENT: normal external ear exam Mouth exam: PRESENT: moist, tongue midline, other - Intermittent drooling Neck exam: ABSENT: carotid bruit, JVD, lymphadenopathy, thyromegaly, tracheal deviation Respiratory exam: PRESENT: clear to auscultation agustina. ABSENT: rales, rhonchi, wheezes Cardiovascular exam: PRESENT: RRR. ABSENT: diastolic murmur, rubs, systolic murmur Pulses: PRESENT: normal dorsalis pedis pul Vascular exam: PRESENT: normal capillary refill GI/Abdominal exam: PRESENT: normal bowel sounds, soft. ABSENT: distended, guarding, mass, organolmegaly, rebound, tenderness Rectal exam: PRESENT: deferred Extremities exam: PRESENT: full ROM. ABSENT: calf tenderness, clubbing, pedal edema Neurological exam: PRESENT: alert - The patient is completely aphasic and unable to fully assess orientation., awake, CN II-XII grossly intact. ABSENT: motor sensory deficit Psychiatric exam: PRESENT: flat affect. ABSENT: homicidal ideation, suicidal ideation Skin exam: PRESENT: dry, intact, warm. ABSENT: cyanosis, rash Results Laboratory Results: 12/03/16 06:18 12/03/16 06:18 12/03/16 12/03/16 12/03/16 01:30 06:18 06:18 WBC 11.3 H RBC 4.14 Hgb 12.3 Hct 39.1 MCV 95 MCH 29.9 MCHC 31.6 L RDW 16.2 H Plt Count 201 Seg Neutrophils % 69.7 Lymphocytes % 20.9 Monocytes % 5.6 Eosinophils % 3.2 Basophils % 0.6 Absolute Neutrophils 7.9 Absolute Lymphocytes 2.4 Absolute Monocytes 0.6 Absolute Eosinophils 0.4 Absolute Basophils 0.1 Sodium 165.1 H 166.2 H Potassium 3.6 3.6 Chloride 125 H 125 H Carbon Dioxide 26 29 Anion Gap 14 12 BUN 42 H 41 H Creatinine 0.46 L 0.46 L Est GFR ( Amer) > 60 > 60 Est GFR (Non-Af Amer) > 60 > 60 Glucose 135 H 136 H Calcium 9.3 9.3 Impressions: Abdomen/Pelvis CT 12/02/16 19:10 IMPRESSION: New 9 mm calcified stone in the right renal pelvis. Persistent 10 mm stone is present in the left renal pelvis. No acute ureteral stone or urinary obstruction. Assessment & Plan - Diagnosis (1) UTI (urinary tract infection) Qualifiers: Urinary tract infection type: site unspecified Hematuria presence: with hematuria Qualified Code(s): N39.0 - Urinary tract infection, site not specified; R31.9 - Hematuria, unspecified Is this a current diagnosis for this admission?: YesPlan: Given the patient's previous cultures will transition coverage to ertapenem. 12/02/16 16:35 Urine Culture - Preliminary Mederos Catheter Gram Negative Rods (2) Hematuria Is this a current diagnosis for this admission?: YesPlan: Appears the patient has had intermittent hematuria in the past. (3) Nephrolithiasis Is this a current diagnosis for this admission?: YesPlan: Nonobstructive. The patient has had urine output. (4) Diabetes mellitus type 2 in nonobese Is this a current diagnosis for this admission?: YesPlan: A1c is 5.1 (5) Hypernatremia Is this a current diagnosis for this admission?: YesPlan: Appears to be free water deficit. Will schedule PEG flushes as well as continue fluids. Will repeat chemistries in the a.m. and follow. (6) A-fib Qualifiers: Atrial fibrillation type: paroxysmal Qualified Code(s): I48.0 - Paroxysmal atrial fibrillation Is this a current diagnosis for this admission?: Yes (7) Accelerated hypertension Is this a current diagnosis for this admission?: YesPlan: Have resumed home blood pressure medications (8) Acute blood loss anemia Is this a current diagnosis for this admission?: YesPlan: Mild (9) Anemia, chronic disease Is this a current diagnosis for this admission?: Yes (10) Dyslipidemia Is this a current diagnosis for this admission?: Yes (11) Hypertension Qualifiers: Hypertension type: essential hypertension Qualified Code(s): I10 - Essential (primary) hypertension Is this a current diagnosis for this admission?: Yes (12) Aphasia as late effect of cerebrovascular accident Is this a current diagnosis for this admission?: Yes (13) History of Clostridium difficile infection Is this a current diagnosis for this admission?: Yes (14) History of MRSA infection Is this a current diagnosis for this admission?: Yes (15) History of cerebrovascular accident with residual deficit Is this a current diagnosis for this admission?: Yes (16) Jejunostomy tube present Is this a current diagnosis for this admission?: Yes (17) DVT prophylaxis Is this a current diagnosis for this admission?: YesPlan: In the patient's kong hematuria will forego DVT prophylaxis will continue SCDs. The patient is chronically bedbound anyway. (18) DNR (do not resuscitate) Is this a current diagnosis for this admission?: Yes - Time Time Spent with patient: 35 or more minutes Medications reviewed and adjusted accordingly: Yes Anticipated discharge: SNF Within: within 72 hours Disposition: The patient is a DO NOT RESUSCITATE DO NOT INTUBATE. Pending patient's symptomatology and diagnostic findings will reevaluate as needed.
[2016-12-03 16:04] LABS: HEMATOCRIT 37.9 % (36.0-47.0); HEMOGLOBIN 12.3 g/dL (12.0-15.5); MEAN CORPUSCULAR HEMOGLOBIN 30.7 pg (27.0-33.4); MEAN CORPUSCULAR HGB CONC 32.5 g/dL (32.0-36.0); MEAN CORPUSCULAR VOLUME 94 fl (80-97); RED BLOOD COUNT 4.01 10^6/uL (3.72-5.28); RED CELL DISTRIBUTION WIDTH 16.2 % (11.5-14.0); WHITE BLOOD COUNT 9.2 10^3/uL (4.0-10.5)
[2016-12-03] MEDS: HYDRALAZINE HCL 50 MG TABLET JT SCH ×2 (16:12→22:49)
[2016-12-03] MEDS: CLONIDINE HCL 0.1 MG TABLET JT SCH ×2 (16:12→22:49)
[2016-12-03] MEDS: MULTIVITS W-MIN/IRON SOLN 60 ML PEG SCH (16:13)
[2016-12-03] MEDS: LANSOPRAZOLE 30 MG TAB.RAP.DR JT SCH (16:17)
[2016-12-03] MEDS ORDERED: LANSOPRAZOLE 30 MG TAB.RAP.DR PO SCH (17:00)
[2016-12-03] MEDS ORDERED: (PENDING PHARMACY ID) (Lactulose [Lactulose] 30 ML) PEG SCH (22:00)
[2016-12-03] MEDS: LACTULOSE SYRUP 20 GM/30 ML UDCUP JT SCH (22:49)
[2016-12-04 04:46] LABS: HEMATOCRIT 38.5 % (36.0-47.0); HEMOGLOBIN 12.3 g/dL (12.0-15.5); HGB HCT DIFFERENCE -1.6; MEAN CORPUSCULAR HEMOGLOBIN 30.4 pg (27.0-33.4); MEAN CORPUSCULAR HGB CONC 32.1 g/dL (32.0-36.0); MEAN CORPUSCULAR VOLUME 95 fl (80-97); RED BLOOD COUNT 4.06 10^6/uL (3.72-5.28); WHITE BLOOD COUNT 9.5 10^3/uL (4.0-10.5)
[2016-12-04 04:59] LABS: ANION GAP 10 (5-19); BLOOD UREA NITROGEN 38 mg/dL (7-20); CALCIUM 9.2 mg/dL (8.4-10.2); CARBON DIOXIDE 28 mmol/L (22-30); CHLORIDE 125 mmol/L (98-107); CREATININE RESULT 0.41 mg/dL (0.52-1.25); GLUCOSE 111 mg/dL (75-110); MAGNESIUM 2.5 mg/dL (1.6-2.3); POTASSIUM 3.4 mmol/L (3.6-5.0)
[2016-12-04] MEDS: LANSOPRAZOLE 30 MG TAB.RAP.DR JT SCH ×2 (06:10→16:11)
[2016-12-04] MEDS: HYDRALAZINE HCL 50 MG TABLET JT SCH ×3 (06:10→21:28)
[2016-12-04] MEDS: CLONIDINE HCL 0.1 MG TABLET JT SCH (06:10)
[2016-12-04] MEDS ORDERED: HYDROMORPHONE HCL INJ/PF 2 MG/ML AMPULE IV PRN (09:19)
[2016-12-04] MEDS ORDERED: CLONIDINE 0.3 MG/24 HR PATCH.TDWK TD SCH (10:00)
[2016-12-04] MEDS: ASPIRIN 81 MG TABLET, CHEWABLE JT SCH (10:22)
[2016-12-04] MEDS: FERROUS SULFATE LIQUID 300 MG/5 ML UDC JT SCH ×2 (10:22→17:25)
[2016-12-04] MEDS: CARVEDILOL 12.5 MG TABLET JT SCH ×2 (10:22→21:28)
[2016-12-04] MEDS: AMLODIPINE BESYLATE 10 MG TABLET JT SCH (10:22)
[2016-12-04] MEDS: LOSARTAN POTASSIUM 50 MG TABLET JT SCH (10:22)
[2016-12-04] MEDS: POLYVINYL ALCOHOL 1.4% OPH SOLN 15 ML OU SCH ×2 (10:56→17:25)
[2016-12-04] MEDS: ERTAPENEM SODIUM 1 GM in NORMAL SALINE 50 ML IV SCH (10:56)
[2016-12-04] MEDS: POTASSI CL 20 MEQ/1/2NS 1L 1,000 ML IV PRN (10:57)
[2016-12-04] MEDS: MULTIVITS W-MIN/IRON SOLN 60 ML PEG SCH (11:34)
[2016-12-04] MEDS ORDERED: LEVOFLOXACIN 500 MG/D5W RTU 500 MG/100 ML RTUPB IV PRN (15:44)
--- NOTE | 2016-12-04 16:46 | PDOC PROGRESS REPORT ---
Subjective Progress Note for:: 12/04/16 Subjective:: The patient was seen earlier today on rounds. The patient is unable to provide any history. The patient has had no episodes of vomiting or diarrhea. The patient does have a malfunctioning J-tube and is unable to be flushed. Currently awaiting surgery input. Physical Exam Vital Signs: Temp Pulse Resp BP Pulse Ox 99 F 103 H 16 184/82 H 94 12/04/16 16:00 12/04/16 16:00 12/04/16 16:00 12/04/16 16:00 12/04/16 16:00 Intake & Output 12/02/16 12/03/16 12/04/16 23:59 23:59 23:59 Intake Total 1106 Output Total 400 250 Balance 706 -250 Weight 63.5 kg 63.5 kg General appearance: PRESENT: disheveled. ABSENT: well-nourished Exam: Frail, chronically ill-appearing. Head exam: PRESENT: atraumatic, normocephalic Eye exam: PRESENT: conjunctiva pink, EOMI, PERRLA. ABSENT: scleral icterus Ear exam: PRESENT: normal external ear exam Mouth exam: PRESENT: moist, tongue midline, other - Intermittent drooling Neck exam: ABSENT: carotid bruit, JVD, lymphadenopathy, thyromegaly, tracheal deviation Respiratory exam: PRESENT: clear to auscultation agustina. ABSENT: rales, rhonchi, wheezes Cardiovascular exam: PRESENT: RRR. ABSENT: diastolic murmur, rubs, systolic murmur Pulses: PRESENT: normal dorsalis pedis pul Vascular exam: PRESENT: normal capillary refill GI/Abdominal exam: PRESENT: normal bowel sounds, soft. ABSENT: distended, guarding, mass, organolmegaly, rebound, tenderness Rectal exam: PRESENT: deferred Extremities exam: PRESENT: full ROM. ABSENT: calf tenderness, clubbing, pedal edema Neurological exam: PRESENT: alert - The patient is completely aphasic and unable to fully assess orientation., awake, CN II-XII grossly intact. ABSENT: motor sensory deficit Psychiatric exam: PRESENT: flat affect. ABSENT: homicidal ideation, suicidal ideation Skin exam: PRESENT: dry, intact, warm. ABSENT: cyanosis, rash Results Laboratory Results: 12/04/16 04:26 12/04/16 04:26 12/04/16 12/04/16 04:26 04:26 WBC 9.5 RBC 4.06 Hgb 12.3 Hct 38.5 MCV 95 MCH 30.4 MCHC 32.1 RDW 16.0 H Plt Count 181 Sodium 163.0 H Potassium 3.4 L Chloride 125 H Carbon Dioxide 28 Anion Gap 10 BUN 38 H Creatinine 0.41 L Est GFR ( Amer) > 60 Est GFR (Non-Af Amer) > 60 Glucose 111 H Calcium 9.2 Magnesium 2.5 H 12/03/16 04:30 Nasophary (Mrsa Only) MRSA Surveillance Culture - Final NO MRSA RECOVERED Impressions: Abdomen/Pelvis CT 12/02/16 19:10 IMPRESSION: New 9 mm calcified stone in the right renal pelvis. Persistent 10 mm stone is present in the left renal pelvis. No acute ureteral stone or urinary obstruction. Assessment & Plan - Diagnosis (1) UTI (urinary tract infection) Qualifiers: Urinary tract infection type: site unspecified Hematuria presence: with hematuria Qualified Code(s): N39.0 - Urinary tract infection, site not specified Is this a current diagnosis for this admission?: YesPlan: Proteus. Sensitive to ertapenem (2) Hematuria Is this a current diagnosis for this admission?: YesPlan: This has improved hemoglobin is stable (3) Nephrolithiasis Is this a current diagnosis for this admission?: YesPlan: Nonobstructive. The patient has had urine output. (4) Diabetes mellitus type 2 in nonobese Is this a current diagnosis for this admission?: YesPlan: A1c is 5.1 (5) Hypernatremia Is this a current diagnosis for this admission?: YesPlan: Appears to be free water deficit. Will schedule J to flushes as well as continue fluids. Will repeat chemistries in the a.m. and follow. (6) A-fib Qualifiers: Atrial fibrillation type: paroxysmal Qualified Code(s): I48.0 - Paroxysmal atrial fibrillation Is this a current diagnosis for this admission?: Yes (7) Accelerated hypertension Is this a current diagnosis for this admission?: YesPlan: Have resumed home blood pressure medications (8) Acute blood loss anemia Is this a current diagnosis for this admission?: Yes (9) Anemia, chronic disease Is this a current diagnosis for this admission?: Yes (10) Dyslipidemia Is this a current diagnosis for this admission?: Yes (11) Hypertension Qualifiers: Hypertension type: essential hypertension Qualified Code(s): I10 - Essential (primary) hypertension Is this a current diagnosis for this admission?: Yes (12) Aphasia as late effect of cerebrovascular accident Is this a current diagnosis for this admission?: Yes (13) History of Clostridium difficile infection Is this a current diagnosis for this admission?: Yes (14) History of MRSA infection Is this a current diagnosis for this admission?: Yes (15) History of cerebrovascular accident with residual deficit Is this a current diagnosis for this admission?: Yes (16) Jejunostomy tube present Is this a current diagnosis for this admission?: Yes (17) DVT prophylaxis Is this a current diagnosis for this admission?: YesPlan: In the patient's kong hematuria will forego DVT prophylaxis will continue SCDs. The patient is chronically bedbound anyway. (18) DNR (do not resuscitate) Is this a current diagnosis for this admission?: Yes - Time Time Spent with patient: 25-34 minutes Medications reviewed and adjusted accordingly: Yes Anticipated discharge: SNF
--- NOTE | 2016-12-04 19:08 | CONSULTATION REPORT E ---
Consultation Report NAME: YANCI MAGALLANES : 1950 AGE: 66Y DATE: 12/04/2016 529 A TO: WENDY LOZADA M.D. FROM: SUNITHA BUSTOS M.D. Requesting Physician HISTORY OF PRESENT ILLNESS: The patient is a 66-year-old female patient with history of cerebrovascular disease, stroke, aphasia, swallowing problems. She has gastrojejunal tube which apparently is malfunctioning, not able to flush or feed to the patient, and that is the reason for consultation. Again, she had a tube placed at outside facility. The duration of the tube and last replacement unknown but has been there for a long time and intermittently giving some problems of leakage. They are trying to manage and apparently was supposed to have replacement, and now she is admitted to the hospital having this problem with the feeding tube. PAST MEDICAL HISTORY: 1. History of stroke. 2. Cerebrovascular disease. 3. Bedridden with aphasia. PAST SURGICAL HISTORY: She has a gastrojejunal tube. PHYSICAL EXAMINATION: GENERAL: She is awake, not in any distress, afebrile. LUNGS: Both lungs with good air entry. CARDIOVASCULAR: Heart sounds regular. ABDOMINAL: Soft, nontender and the tube is just to the right of midline in the mid epigastric area present. There is no obvious leak or bowel contents, and the tube seems to be pretty beaten up and old and clogged up at the entry ports. It is expected to have 3 ports for the gastrojejunal tube but only has 2 tubes and it looks like she had a change of the tip, and the tip has 2 channels for this. IMPRESSION OVERALL: The patient has a history of cerebrovascular disease and unable to have oral intake and she needs a feeding tube for nutritional maintenance and is completely a dysfunctional tube. PLAN: I studied the tube and injected the syringe slowly. I was able to flush the tube nicely both channels and left the tube in place. We do not have a new tube replacement for this tube in the hospital. I went through all the storage in endoscopic unit in the operating room, no tube available for this current gastrojejunal tube. So plan is we will keep the same tube for time being because it can flush and it seems she can use it temporarily. I have ordered this special tube and hopefully we can get and we can replace it in the hospital. If not, she may have to go to the same facility where it was done in the past. Thank you for allowing me to participate in the care of this patient. I spent almost 1-1/2 hours to go through all the history and examination plus trying to make this tube work. DICTATING PHYSICIAN: WENDY LOZADA M.D. [id number] PHY#: [id number] [id number] JOB#: [id number] ACCT: [id number] cc:WENDY LOZADA M.D. >
[2016-12-04] MEDS: LACTULOSE SYRUP 20 GM/30 ML UDCUP JT SCH (21:28)
--- NOTE | 2016-12-04 23:34 | EKG REPORT ---
SEVERITY:- ABNORMAL ECG - SINUS TACHYCARDIA CONSIDER LEFT VENTRICULAR HYPERTROPHY BORDERLINE PROLONGED QT INTERVAL : Confirmed by: Ivy Thakur MD 04-Dec-2016 23:34:32
[2016-12-05] MEDS: POTASSI CL 20 MEQ/1/2NS 1L 1,000 ML IV PRN (00:17)
[2016-12-05] MEDS: HYDRALAZINE HCL 50 MG TABLET JT SCH (06:12)
[2016-12-05] MEDS: LANSOPRAZOLE 30 MG TAB.RAP.DR JT SCH (06:13)
[2016-12-05] MEDS ORDERED: POTASSI CL 20 MEQ/1/2NS 1L 1,000 ML IV PRN (08:33)
--- NOTE | 2016-12-05 08:50 | PDOC PROGRESS REPORT ---
Subjective Progress Note for:: 12/05/16 Subjective:: I had a long discussion with the patient's daughter. After much discussion she has elected to proceed with comfort measures. The daughter trusts her mother's cognitive capacity and wants her to have autonomy in her decision making even if it is fatalistic. The patient has been refusing tests and feedings. The patient is in constant pain. Daughter agreed to Morphine drip. The daughter does not wish to proceed with J-tube placement. Current tube can be used at the patient's discretion. Physical Exam Vital Signs: Temp Pulse Resp BP Pulse Ox 99.3 F 110 H 16 183/66 H 99 12/05/16 08:00 12/05/16 08:00 12/05/16 08:00 12/05/16 08:00 12/05/16 08:00 Intake & Output 12/03/16 12/04/16 12/05/16 23:59 23:59 23:59 Intake Total 9557 611 5844 Output Total 400 250 400 Balance 706 710 602 Weight 63.5 kg 63.5 kg General appearance: PRESENT: disheveled. ABSENT: well-nourished Exam: Frail, chronically ill-appearing. Head exam: PRESENT: atraumatic, normocephalic Eye exam: PRESENT: conjunctiva pink, EOMI, PERRLA. ABSENT: scleral icterus Ear exam: PRESENT: normal external ear exam Mouth exam: PRESENT: moist, tongue midline, other - Intermittent drooling Neck exam: ABSENT: carotid bruit, JVD, lymphadenopathy, thyromegaly, tracheal deviation Respiratory exam: PRESENT: clear to auscultation agustina. ABSENT: rales, rhonchi, wheezes Cardiovascular exam: PRESENT: RRR. ABSENT: diastolic murmur, rubs, systolic murmur Pulses: PRESENT: normal dorsalis pedis pul Vascular exam: PRESENT: normal capillary refill GI/Abdominal exam: PRESENT: normal bowel sounds, soft. ABSENT: distended, guarding, mass, organolmegaly, rebound, tenderness Rectal exam: PRESENT: deferred Extremities exam: PRESENT: full ROM. ABSENT: calf tenderness, clubbing, pedal edema Neurological exam: PRESENT: alert - The patient is completely aphasic and unable to fully assess orientation., awake, CN II-XII grossly intact. ABSENT: motor sensory deficit Psychiatric exam: PRESENT: flat affect. ABSENT: homicidal ideation, suicidal ideation Skin exam: PRESENT: dry, intact, warm. ABSENT: cyanosis, rash Results Laboratory Results: 12/04/16 04:26 12/04/16 04:26 12/03/16 04:30 Nasophary (Mrsa Only) MRSA Surveillance Culture - Final NO MRSA RECOVERED Impressions: Abdomen/Pelvis CT 12/02/16 19:10 IMPRESSION: New 9 mm calcified stone in the right renal pelvis. Persistent 10 mm stone is present in the left renal pelvis. No acute ureteral stone or urinary obstruction. KUB X-Ray 12/04/16 00:00 IMPRESSION: NO RADIOGRAPHIC EVIDENCE FOR ACUTE ABDOMINAL DISEASE. SATISFACTORY POSITION OF JEJUNOSTOMY TUBE. Assessment & Plan - Diagnosis (1) UTI (urinary tract infection) Qualifiers: Urinary tract infection type: site unspecified Hematuria presence: with hematuria Qualified Code(s): N39.0 - Urinary tract infection, site not specified Is this a current diagnosis for this admission?: YesPlan: Proteus. Sensitive to ertapenem. Will transition to Ceftin. (2) Hematuria Is this a current diagnosis for this admission?: YesPlan: Resolved. (3) Nephrolithiasis Is this a current diagnosis for this admission?: YesPlan: Nonobstructive. The patient has had urine output. (4) Diabetes mellitus type 2 in nonobese Is this a current diagnosis for this admission?: YesPlan: A1c is 5.1 (5) Hypernatremia Is this a current diagnosis for this admission?: YesPlan: Appears to be free water deficit. Will schedule J to flushes as well as continue fluids. (6) A-fib Qualifiers: Atrial fibrillation type: paroxysmal Qualified Code(s): I48.0 - Paroxysmal atrial fibrillation Is this a current diagnosis for this admission?: Yes (7) Accelerated hypertension Is this a current diagnosis for this admission?: YesPlan: Continue meds if patient is agreeable. (8) Acute blood loss anemia Is this a current diagnosis for this admission?: YesPlan: Mild (9) Anemia, chronic disease Is this a current diagnosis for this admission?: Yes (10) Dyslipidemia Is this a current diagnosis for this admission?: Yes (11) Hypertension Qualifiers: Hypertension type: essential hypertension Qualified Code(s): I10 - Essential (primary) hypertension Is this a current diagnosis for this admission?: Yes (12) Aphasia as late effect of cerebrovascular accident Is this a current diagnosis for this admission?: Yes (13) History of Clostridium difficile infection Is this a current diagnosis for this admission?: Yes (14) History of MRSA infection Is this a current diagnosis for this admission?: Yes (15) History of cerebrovascular accident with residual deficit Is this a current diagnosis for this admission?: Yes (16) Jejunostomy tube present Is this a current diagnosis for this admission?: YesPlan: Patient and family have refused replacement (17) DVT prophylaxis Is this a current diagnosis for this admission?: YesPlan: In the patient's kong hematuria will forego DVT prophylaxis will continue SCDs. The patient is chronically bedbound anyway. (18) DNR (do not resuscitate) Is this a current diagnosis for this admission?: Yes - Time Time Spent with patient: 35 or more minutes Medications reviewed and adjusted accordingly: Yes Anticipated discharge: Hospice Within: when bed available
[2016-12-05] MEDS: POLYVINYL ALCOHOL 1.4% OPH SOLN 15 ML OU SCH ×2 (10:49→17:51)
[2016-12-05] MEDS: LOSARTAN POTASSIUM 50 MG TABLET JT SCH (10:49)
[2016-12-05] MEDS: CARVEDILOL 12.5 MG TABLET JT SCH ×2 (10:49→23:37)
[2016-12-05] MEDS: FERROUS SULFATE LIQUID 300 MG/5 ML UDC JT SCH ×2 (10:49→17:51)
[2016-12-05] MEDS: AMLODIPINE BESYLATE 10 MG TABLET JT SCH (10:49)
[2016-12-05] MEDS: ASPIRIN 81 MG TABLET, CHEWABLE JT SCH (10:50)
[2016-12-05 11:14] LABS: ANION GAP 14 (5-19); BLOOD UREA NITROGEN 32 mg/dL (7-20); CALCIUM 8.8 mg/dL (8.4-10.2); CARBON DIOXIDE 22 mmol/L (22-30); CHLORIDE 127 mmol/L (98-107); CREATININE RESULT 0.47 mg/dL (0.52-1.25); GLUCOSE 83 mg/dL (75-110); MAGNESIUM 2.3 mg/dL (1.6-2.3); POTASSIUM 3.6 mmol/L (3.6-5.0); SODIUM 162.9 mmol/L (137-145)
[2016-12-05] MEDS: MORPHINE SULFATE 60 MG/60 ML RTUINJ IV PRN (13:34)
[2016-12-05] MEDS: CEFUROXIME 500 MG TABLET PO SCH ×2 (17:51→23:37)
[2016-12-05] MEDS: LACTULOSE SYRUP 20 GM/30 ML UDCUP JT SCH (23:37)
--- NOTE | 2016-12-06 08:16 | PDOC PROGRESS REPORT ---
Subjective Progress Note for:: 12/06/16 Subjective:: The patient is resting comfortably. Tachypnea has improved. Urine output has fallen off. Continue comfort measures. Medications only if patient is agreeable. Physical Exam Vital Signs: Temp Pulse Resp BP Pulse Ox 99.3 F 110 H 16 183/66 H 99 12/05/16 08:00 12/05/16 08:00 12/05/16 08:00 12/05/16 08:00 12/05/16 08:00 Intake & Output 12/04/16 12/05/16 12/06/16 23:59 23:59 23:59 Intake Total 960 1922 800 Output Total 250 700 650 Balance 710 1222 150 Weight 63.5 kg General appearance: PRESENT: no acute distress, other - Frail, chronically ill- appearing Head exam: PRESENT: atraumatic Eye exam: ABSENT: periorbital swelling Mouth exam: PRESENT: dry mucosa Neck exam: ABSENT: JVD, tracheal deviation, tracheostomy Respiratory exam: PRESENT: symmetrical, unlabored. ABSENT: tachypnea Vascular exam: PRESENT: pallor Rectal exam: PRESENT: deferred Extremities exam: PRESENT: pedal edema, +1 edema Neurological exam: PRESENT: altered Skin exam: PRESENT: dry, mottled, pallor Results Laboratory Results: 12/04/16 04:26 12/05/16 10:15 12/05/16 10:15 Sodium 162.9 H Potassium 3.6 Chloride 127 H Carbon Dioxide 22 Anion Gap 14 BUN 32 H Creatinine 0.47 L Est GFR ( Amer) > 60 Est GFR (Non-Af Amer) > 60 Glucose 83 Calcium 8.8 Magnesium 2.3 Impressions: Abdomen/Pelvis CT 12/02/16 19:10 IMPRESSION: New 9 mm calcified stone in the right renal pelvis. Persistent 10 mm stone is present in the left renal pelvis. No acute ureteral stone or urinary obstruction. KUB X-Ray 12/04/16 00:00 IMPRESSION: NO RADIOGRAPHIC EVIDENCE FOR ACUTE ABDOMINAL DISEASE. SATISFACTORY POSITION OF JEJUNOSTOMY TUBE. Assessment & Plan - Diagnosis (1) UTI (urinary tract infection) Qualifiers: Urinary tract infection type: site unspecified Hematuria presence: with hematuria Qualified Code(s): N39.0 - Urinary tract infection, site not specified Is this a current diagnosis for this admission?: YesPlan: Proteus. Sensitive to ertapenem. Transitioned to Ceftin. (2) Hematuria Is this a current diagnosis for this admission?: YesPlan: Resolved. (3) Nephrolithiasis Is this a current diagnosis for this admission?: YesPlan: Nonobstructive. (4) Diabetes mellitus type 2 in nonobese Is this a current diagnosis for this admission?: YesPlan: Comfort measures only. (5) Hypernatremia Is this a current diagnosis for this admission?: YesPlan: Appears to be free water deficit. Will schedule J to flushes (6) A-fib Qualifiers: Atrial fibrillation type: paroxysmal Qualified Code(s): I48.0 - Paroxysmal atrial fibrillation Is this a current diagnosis for this admission?: Yes (7) Accelerated hypertension Is this a current diagnosis for this admission?: YesPlan: Continue meds if patient is agreeable. (8) Acute blood loss anemia Is this a current diagnosis for this admission?: YesPlan: Mild (9) Anemia, chronic disease Is this a current diagnosis for this admission?: Yes (10) Dyslipidemia Is this a current diagnosis for this admission?: Yes (11) Hypertension Qualifiers: Hypertension type: essential hypertension Qualified Code(s): I10 - Essential (primary) hypertension Is this a current diagnosis for this admission?: Yes (12) Aphasia as late effect of cerebrovascular accident Is this a current diagnosis for this admission?: Yes (13) History of Clostridium difficile infection Is this a current diagnosis for this admission?: Yes (14) History of MRSA infection Is this a current diagnosis for this admission?: Yes (15) History of cerebrovascular accident with residual deficit Is this a current diagnosis for this admission?: Yes (16) Jejunostomy tube present Is this a current diagnosis for this admission?: YesPlan: Patient and family have refused replacement (17) DVT prophylaxis Is this a current diagnosis for this admission?: YesPlan: Comfort measures (18) DNR (do not resuscitate) Is this a current diagnosis for this admission?: Yes - Time Time Spent with patient: 25-34 minutes Medications reviewed and adjusted accordingly: Yes Anticipated discharge: Hospice Within: when bed available
[2016-12-06] MEDS: AMLODIPINE BESYLATE 10 MG TABLET JT SCH (09:58)
[2016-12-06] MEDS: ASPIRIN 81 MG TABLET, CHEWABLE JT SCH (09:58)
[2016-12-06] MEDS: LOSARTAN POTASSIUM 50 MG TABLET JT SCH (09:58)
[2016-12-06] MEDS: FERROUS SULFATE LIQUID 300 MG/5 ML UDC JT SCH ×2 (09:58→17:04)
[2016-12-06] MEDS: CARVEDILOL 12.5 MG TABLET JT SCH ×2 (09:58→21:03)
[2016-12-06] MEDS: CEFUROXIME 500 MG TABLET PO SCH ×2 (09:58→21:03)
[2016-12-06] MEDS: POLYVINYL ALCOHOL 1.4% OPH SOLN 15 ML OU SCH ×2 (10:00→17:06)
[2016-12-06] MEDS: MORPHINE SULFATE 60 MG/60 ML RTUINJ IV PRN (20:52)
[2016-12-06] MEDS: LACTULOSE SYRUP 20 GM/30 ML UDCUP JT SCH (21:03)
--- NOTE | 2016-12-07 09:33 | PDOC PROGRESS REPORT ---
Subjective Progress Note for:: 12/07/16 Subjective:: The patient is resting comfortably. Tachypnea has improved. Urine output has fallen off. Continue comfort measures. Medications only if patient is agreeable. Breathing is shallow. Physical Exam Vital Signs: Temp Pulse Resp BP Pulse Ox 99.3 F 110 H 12 183/66 H 99 12/05/16 08:00 12/05/16 08:00 12/06/16 18:00 12/05/16 08:00 12/05/16 08:00 Intake & Output 12/05/16 12/06/16 12/07/16 23:59 23:59 23:59 Intake Total 1922 1185 710 Output Total 700 825 610 Balance 1222 360 100 General appearance: PRESENT: no acute distress, other - Frail, chronically ill- appearing Head exam: PRESENT: atraumatic Eye exam: ABSENT: periorbital swelling Mouth exam: PRESENT: dry mucosa Neck exam: ABSENT: JVD, tracheal deviation, tracheostomy Respiratory exam: PRESENT: symmetrical, unlabored. ABSENT: tachypnea Vascular exam: PRESENT: pallor Rectal exam: PRESENT: deferred Extremities exam: PRESENT: pedal edema, +1 edema Neurological exam: PRESENT: altered Skin exam: PRESENT: dry, mottled, pallor Results Laboratory Results: 12/04/16 04:26 12/05/16 10:15 Impressions: Abdomen/Pelvis CT 12/02/16 19:10 IMPRESSION: New 9 mm calcified stone in the right renal pelvis. Persistent 10 mm stone is present in the left renal pelvis. No acute ureteral stone or urinary obstruction. KUB X-Ray 12/04/16 00:00 IMPRESSION: NO RADIOGRAPHIC EVIDENCE FOR ACUTE ABDOMINAL DISEASE. SATISFACTORY POSITION OF JEJUNOSTOMY TUBE. Assessment & Plan - Diagnosis (1) UTI (urinary tract infection) Qualifiers: Urinary tract infection type: site unspecified Hematuria presence: with hematuria Qualified Code(s): N39.0 - Urinary tract infection, site not specified Is this a current diagnosis for this admission?: YesPlan: Proteus. Sensitive to ertapenem. Transitioned to Ceftin. (2) Hematuria Is this a current diagnosis for this admission?: YesPlan: Resolved. (3) Nephrolithiasis Is this a current diagnosis for this admission?: YesPlan: Nonobstructive. (4) Diabetes mellitus type 2 in nonobese Is this a current diagnosis for this admission?: YesPlan: Comfort measures only. (5) Hypernatremia Is this a current diagnosis for this admission?: YesPlan: Appears to be free water deficit. Will schedule J to flushes (6) A-fib Qualifiers: Atrial fibrillation type: paroxysmal Qualified Code(s): I48.0 - Paroxysmal atrial fibrillation Is this a current diagnosis for this admission?: Yes (7) Accelerated hypertension Is this a current diagnosis for this admission?: YesPlan: Continue meds if patient is agreeable. (8) Acute blood loss anemia Is this a current diagnosis for this admission?: YesPlan: Mild (9) Anemia, chronic disease Is this a current diagnosis for this admission?: Yes (10) Dyslipidemia Is this a current diagnosis for this admission?: Yes (11) Hypertension Qualifiers: Hypertension type: essential hypertension Qualified Code(s): I10 - Essential (primary) hypertension Is this a current diagnosis for this admission?: Yes (12) Aphasia as late effect of cerebrovascular accident Is this a current diagnosis for this admission?: Yes (13) History of Clostridium difficile infection Is this a current diagnosis for this admission?: Yes (14) History of MRSA infection Is this a current diagnosis for this admission?: Yes (15) History of cerebrovascular accident with residual deficit Is this a current diagnosis for this admission?: Yes (16) Jejunostomy tube present Is this a current diagnosis for this admission?: YesPlan: Patient and family have refused replacement (17) DVT prophylaxis Is this a current diagnosis for this admission?: YesPlan: Comfort measures (18) DNR (do not resuscitate) Is this a current diagnosis for this admission?: YesPlan: Comfort measures - Time Time Spent with patient: 25-34 minutes Medications reviewed and adjusted accordingly: Yes Anticipated discharge: Hospice Within: when bed available
[2016-12-07] MEDS: AMLODIPINE BESYLATE 10 MG TABLET JT SCH (10:20)
[2016-12-07] MEDS: LOSARTAN POTASSIUM 50 MG TABLET JT SCH (10:20)
[2016-12-07] MEDS: CEFUROXIME 500 MG TABLET PO SCH ×2 (10:20→22:37)
[2016-12-07] MEDS: FERROUS SULFATE LIQUID 300 MG/5 ML UDC JT SCH ×2 (10:20→18:13)
[2016-12-07] MEDS: ASPIRIN 81 MG TABLET, CHEWABLE JT SCH (10:20)
[2016-12-07] MEDS: CARVEDILOL 12.5 MG TABLET JT SCH ×2 (10:20→22:37)
[2016-12-07] MEDS: POLYVINYL ALCOHOL 1.4% OPH SOLN 15 ML OU SCH ×2 (10:22→18:13)
[2016-12-07] MEDS: NORMAL SALINE 1000 ML 1,000 ML IV PRN (10:26)
[2016-12-07 12:30] VITALS: BP 115/69
--- NOTE | 2016-12-07 13:04 | Palliative Consultation Report ---
Consultation From:: ANAYELI NOLEN Consult Reason: Palliative Care - HPI HPI: Appreciate consult for this 66 year old female who is currently on comfort measures. She has remote history of CVA resulting in aphasia and dysphagia. She has been fed via jejunostomy tube for a long time. She was brought from SNF with complaints black urine. She was admitted with UTI, atrial fib, HTN and anemia. During her course, her jejunostomy tube was found to be not working well. In contacting her daughter, it was decided to not replace it since patient has been refusing her medications and treatments and is felt to be wanting to . Apparently her has recently but I am not sure if patient is aware of this. Daughter has requested comfort measures only and wants patient transferred to hospice care center. Mrs. Ghosh is awake in her bed during my visit, no family here. I asked her many questions and she said no to all except when I asked if she was frightened. She nodded weak yes. I explained that she is in the hospital and we are trying to keep her comfortable. SHe nodded no to questions about pain. I asked if she had been visiting with her daughter and she smiled weakly. She relaxed as I talked with her and gave her oral care and drifted off to sleep with no evidence of pain or respiratory distress. Onset: Last week Onset/Duration: Gradual Pain Level: Denies Associated Symptoms: Slow to respond, Weakness Past Medical History(Consults) - General Information Source: Patient, [facility] Records Home Medications: Amlodipine Besylate [Norvasc 10 mg Tablet] 10 mg JT DAILY 12/03/16 Aspirin [Aspirin 81 mg Chewable Tablet] 81 mg JT DAILY 12/03/16 Carvedilol [Coreg 25 mg Tablet] 25 mg JT Q12 12/03/16 Clonidine HCl [Catapres 0.3 mg Tablet] 0.3 mg JT Q8 12/03/16 Collagenase Clostridium Hist. [Santyl Ointment 30 gm] 1 applic TOP DAILYP PRN Ferrous Sulfate [Ferrous Sulfate Liquid 300 mg/5 ml Udcup] 300 mg JT BID Hydralazine HCl [Apresoline 50 mg Tablet] 150 mg JT Q8 12/03/16 Insulin Aspart [Novolog Insulin (Aspart) 100 unit/mL] 0 unit SQ .PERSLIDINGSCALE 12/03/16 Lactulose [Cephulac Syrup 20 gm/30 ml Udcup] 10 gm JT QHS 12/03/16 Lansoprazole [Prevacid 30 mg Odt Tablet] 30 mg JT BID 12/03/16 Lorazepam [Ativan 0.5 mg Tablet] 0.5 mg JT Q4HP PRN 12/03/16 Losartan Potassium [Cozaar 100 mg Tablet] 100 mg JT DAILY 12/03/16 Metformin HCl [Glucophage] 500 mg JT Q12 12/03/16 Multivitamin [Multivitamins] 1 each JT DAILY 12/03/16 Ondansetron HCl [Zofran] 4 mg JT Q6HP PRN 12/03/16 Oxycodone HCl [Oxy-Ir 5 mg Tablet] 5 mg PO Q6HP PRN 12/03/16 Polyvinyl Alcohol [Liquitears] 1 drop OU BID 12/03/16 Protein Supplement [Promod] 30 ml JT Q8 12/03/16 Allergies/Adverse Reactions: Penicillins Allergy (Intermediate, Verified 11/24/16 09:43) Unknown reaction heparin Adverse Reaction (Severe, Verified 11/19/16 15:41) Thrombocytopenia - Social History Lives with: [facility] Family History: None, Reviewed & Not Pertinent, Other - Unable to obtain Parental Family History Reviewed: No Children Family History Reviewed: No Sibling(s) Family History Reviewed.: No Smoking Status: Unknown if Ever Smoked Frequency of Alcohol Use: None Hx Recreational Drug Use: No Drugs: None Hx Prescription Drug Abuse: No - Past Medical History Cardiac Medical History: Reports: Hx Atrial Fibrillation, Hx Hypercholesterolemia, Hx Hypertension Denies: Hx Coronary Artery Disease, Hx Heart Attack Pulmonary Medical History: Reports: Hx Pneumonia Denies: Hx Asthma, Hx Bronchitis, Hx COPD, Hx Tuberculosis Neurological Medical History: Reports: Hx Cerebrovascular Accident - HEMIPARESIS , APHASIA, DYSPHAGIA, HEMIPLAGIA. Denies: Hx Seizures Endocrine Medical History: Reports: Hx Diabetes Mellitus Type 2. Denies: Hx Diabetes Mellitus Type 1 Renal/ Medical History: Reports: Hx Kidney Stones GI Medical History: Reports: Hx Diverticulitis, Hx Gastroesophageal Reflux Disease Musculoskeltal Medical History: Reports Hx Arthritis, Reports Hx Musculoskeletal Deformity Psychiatric Medical History: Reports: Hx Depression Hematology: Reports: Anemia - Surgical History Past Surgical History: Reports: Hx Abdominal Surgery - PEG tube and J-tube placement, Other - G-tube, open jejunostomy tube placement. Denies: Hx Hysterectomy Review of systems ROS unobtainable: due to mental statu Ojective:Exam Vital Signs: Temp Pulse Resp BP Pulse Ox 98.3 F 109 H 18 115/69 96 12/07/16 12:29 12/07/16 12:29 12/07/16 12:29 12/07/16 12:29 12/07/16 12:29 Intake & Output 12/06/16 12/07/16 12/08/16 06:59 06:59 06:59 Intake Total 1720 1095 Output Total 950 785 Balance 770 310 - General General Appearance: Lethargic In distress: None Note:: In bed with eyes open, No evidence pain or distress. Breathing easily. Nods weakly in answer to questions about pain or distress. Skin cool dry, no mottling noted, no edema. Abd soft. Lips pale and dry. Good facial symmetry noted. No spontaneous movement. - Respiratory Respiratory Status: No respiratory distress Breath sounds: Clear - Cardiovascular Rhythm: Irregularly irregular Pulses: Normal: Radial - Abdominal Distension: No distension - Extremities Upper extremity: Normal temperature Lower extremities: Normal temperature - Contractures of hands/wrists, foot drop bilaterally - Neurological Orientation: Oriented to person Speech: Expressive aphasia Cranial nerves: Normal - Psychological Associated symptoms: Normal affect Objective-Diagnostic Laboratory: 12/04/16 04:26 12/05/16 10:15 Plan and Recommendation Plan and Recommendation: Patient is appropriate for hospice care center, however, there are no beds available there today ([facility]). I understand daughter has already talked to town planner about seeking bed in [facility] which would be appropriate. I would suggest that Lorazepam IV or subcutaneous be scheduled for this patient since she seems anxious. She does not seem to have any pain or respiratory distress. - Time Spent with Patient Time spent with patient: 15 to 30 Minutes - 15 min with patient, 30 min total chart review etc
[2016-12-07] MEDS ORDERED: LORAZEPAM INJ 2 MG/1 ML VIAL IV PRN (15:48)
[2016-12-07] MEDS: LACTULOSE SYRUP 20 GM/30 ML UDCUP JT SCH (22:37)
[2016-12-08] MEDS: MORPHINE SULFATE 60 MG/60 ML RTUINJ IV PRN (01:53)
[2016-12-08] MEDS: LOSARTAN POTASSIUM 50 MG TABLET JT SCH (11:02)
[2016-12-08] MEDS: ASPIRIN 81 MG TABLET, CHEWABLE JT SCH (11:02)
[2016-12-08] MEDS: POLYVINYL ALCOHOL 1.4% OPH SOLN 15 ML OU SCH ×2 (11:02→17:26)
[2016-12-08] MEDS: FERROUS SULFATE LIQUID 300 MG/5 ML UDC JT SCH ×2 (11:02→17:26)
[2016-12-08] MEDS: CEFUROXIME 500 MG TABLET PO SCH ×2 (11:02→21:52)
[2016-12-08] MEDS: CARVEDILOL 12.5 MG TABLET JT SCH ×2 (11:02→21:52)
[2016-12-08] MEDS: AMLODIPINE BESYLATE 10 MG TABLET JT SCH (11:02)
--- NOTE | 2016-12-08 11:35 | PDOC PROGRESS REPORT ---
Subjective Progress Note for:: 12/08/16 Subjective:: Patient seen on morning rounds. She is resting in bed. She is nonverbal to questions at the present time. There is no family at the bedside. She appears calm and comfortable. She is presently on comfort measures only. Physical Exam Vital Signs: Temp Pulse Resp BP Pulse Ox 98.3 F 109 H 14 115/69 96 12/07/16 12:29 12/07/16 12:29 12/07/16 22:00 12/07/16 12:29 12/07/16 12:29 Intake & Output 12/07/16 12/08/16 12/09/16 06:59 06:59 06:59 Intake Total 1095 346 Output Total 785 150 Balance 310 196 General appearance: PRESENT: no acute distress, well-developed, well-nourished Head exam: PRESENT: atraumatic, normocephalic Eye exam: PRESENT: conjunctiva pink, EOMI, PERRLA. ABSENT: scleral icterus Ear exam: PRESENT: normal external ear exam Mouth exam: PRESENT: moist, tongue midline Neck exam: ABSENT: carotid bruit, JVD, lymphadenopathy, thyromegaly Respiratory exam: PRESENT: clear to auscultation agustina. ABSENT: rales, rhonchi, wheezes Cardiovascular exam: PRESENT: RRR. ABSENT: diastolic murmur, rubs, systolic murmur Pulses: PRESENT: normal dorsalis pedis pul Vascular exam: PRESENT: normal capillary refill GI/Abdominal exam: PRESENT: normal bowel sounds, soft. ABSENT: distended, guarding, mass, organolmegaly, rebound, tenderness Rectal exam: PRESENT: deferred Extremities exam: PRESENT: full ROM. ABSENT: calf tenderness, clubbing, pedal edema Neurological exam: PRESENT: alert, altered Psychiatric exam: PRESENT: flat affect Skin exam: PRESENT: abrasion Results Laboratory Results: 12/04/16 04:26 12/05/16 10:15 Impressions: Abdomen/Pelvis CT 12/02/16 19:10 IMPRESSION: New 9 mm calcified stone in the right renal pelvis. Persistent 10 mm stone is present in the left renal pelvis. No acute ureteral stone or urinary obstruction. KUB X-Ray 12/04/16 00:00 IMPRESSION: NO RADIOGRAPHIC EVIDENCE FOR ACUTE ABDOMINAL DISEASE. SATISFACTORY POSITION OF JEJUNOSTOMY TUBE. Assessment & Plan - Diagnosis (1) Diabetes mellitus type 2 in nonobese Is this a current diagnosis for this admission?: YesPlan: Patient is on comfort measures only awaiting hospice bed (2) Hematuria Is this a current diagnosis for this admission?: YesPlan: Resolved. Comfort measures only (3) Hypernatremia Is this a current diagnosis for this admission?: YesPlan: No longer checking lab values (4) DNR (do not resuscitate) Is this a current diagnosis for this admission?: YesPlan: Patient is on comfort measures only - Time Time Spent with patient: 25-34 minutes Medications reviewed and adjusted accordingly: Yes Anticipated discharge: Hospice Within: when bed available
[2016-12-08] MEDS: NORMAL SALINE 1000 ML 1,000 ML IV PRN (20:16)
[2016-12-09] MEDS: MORPHINE SULFATE 60 MG/60 ML RTUINJ IV PRN (05:28)
--- NOTE | 2016-12-09 10:56 | PDOC TRANSFER SUMMARY ---
General - Admit/Disc Date/PCP Admission Date/Primary Care Provider: 12/03/16 01:21 FELICIA TANNER MD Discharge Date: 12/09/16 - Discharge Diagnosis (1) Diabetes mellitus type 2 in nonobese Is this a current diagnosis for this admission?: YesSummary: Patient is comfort measures only (2) Hematuria Is this a current diagnosis for this admission?: YesSummary: Comfort measures only (3) Hypernatremia Is this a current diagnosis for this admission?: YesSummary: Not checking labs, comfort measures only (4) DNR (do not resuscitate) Is this a current diagnosis for this admission?: Yes - Additional Information Resuscitation Status: Do Not Resuscitate - Portable DO NOT RESUSCITATE document is on chart. Will follow this directive. 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 Patient has been discussed with emergency room physician who evaluated the patient. Patient is aphasic and while she does look about on occasion, is otherwise minimally interactive with her surroundings and thus is able to provide no history whatsoever in terms of acute or chronic events, review of systems, personal habits, family history, etc. No friends or family are present. Old inpatient records are reviewed. noted to have "almost black" urine per [facility] staff report. Has known underlying nephrolithiasis. No further information available this point in time. Laboratory results are listed in [facility] and are reviewed. X-ray summary results are listed below, with full report(s) reviewed. . Social history/personal habits: Current resident of [facility].No further information available this point in time. Allergies/adverse reactions NKDA. Home medications are reviewed from the medication list from the [facility] and are to be reconciled by nursing staff in [facility]. [facility] may not accurately reflect patient's true medications, dosages, and/or frequencies. REVIEW OF SYSTEMS: See history and present illness.No further information available this point in time. PHYSICAL EXAMINATION: 5 feet 4 inches tall. 63.5 kg. BMI 24 kg/m.Temperature 99.0. Blood pressure 159/79. Respirations are 16 and unlabored. 96% saturation on room air. Pulse 99 and regular. Well-nourished well-developed though chronically ill-appearing female who appears a bit older than her stated age. She is awake and looking about the room a bit, but otherwise is minimally interactive with her surroundings. However, when I asked her several times if she were having pain she did briefly shake her head "no." Skin is warm and dry. No grossly obvious evidence of rash in areas of skin examined. No subcutaneous nodules palpated. ENT: [Hearing difficult to adequately evaluate due to her current mental status. Eyes: No scleral icterus. Pupils equal and reactive to light at 4 mm. [place] conjunctivae. Neck is nontender to gentle palpation. Midline trachea. No palpable thyroid nodule mass enlargement or tenderness. Lymphatic: No palpable cervical or clavicular nodes. Neck and lymphatic exams limited by patient body habitus. Psychiatric: Can't be adequately evaluated due to her current status. Lungs: Auscultation reveals clear and equal breath sounds bilaterally. No use of accessory respiratory muscles. Cardiovascular: Heart regular rate and rhythm, without gallop murmur or rub. No carotid or abdominal aortic bruits. No ankle or pedal edema. Faintly palpable dorsalis pedis pulses. Abdomen: soft, , slightly distended nontender with positive bowel sounds. Unable to adequately evaluate abdomen for masses or organomegaly due to distention. Dark.Red bloody urine in her Mederos catheter drainage tubing and bag. Extremities: Feet are warm and dry. No calf tenderness to compression. No grossly obvious visual evidence of calf swelling. Gentle manipulation of lower extremities fails to reveal any obvious evidence of injury or instability to knees hips or ankles. Neurologic: Patellar reflexes absent. Absent Babinski. Light touch can't be determined due to her current status.. Will not dorsiflex or plantarflex her feet or comber operator fingers despite a number of request. Hospital Course Hospital Course: Patient was referred to the hospitalist service for admission. She was gently rehydrated with IV fluids. It was found that her jejunostomy tube was dislodged and needed to be replaced. Her daughter decided due to the patient's generalized decline that she did not want to put her through having it replaced. Palliative care was consulted. The patient's daughter wished for her mother to go to inpatient hospice with comfort measures in place for symptom management. Discharge planning was involved. There was no availability of beds the patient was placed on comfort measures only here. Today she will be discharged to go to [facility]. Physical Exam Vital Signs: Temp Pulse Resp BP Pulse Ox 98.3 F 109 H 14 115/69 96 12/07/16 12:29 12/07/16 12:29 12/07/16 22:00 12/07/16 12:29 12/07/16 12:29 Intake & Output 12/08/16 12/09/16 12/10/16 06:59 06:59 06:59 Intake Total 346 453 Output Total 150 150 Balance 196 303 Weight 63.5 kg General appearance: PRESENT: no acute distress, well-developed Head exam: PRESENT: atraumatic, normocephalic Eye exam: PRESENT: conjunctiva pink, EOMI, PERRLA. ABSENT: scleral icterus Ear exam: PRESENT: normal external ear exam Mouth exam: PRESENT: dry mucosa, neck supple, tongue midline Neck exam: ABSENT: carotid bruit, JVD, lymphadenopathy, thyromegaly Respiratory exam: PRESENT: clear to auscultation agustina. ABSENT: rales, rhonchi, wheezes Cardiovascular exam: PRESENT: RRR. ABSENT: diastolic murmur, rubs, systolic murmur Pulses: PRESENT: normal dorsalis pedis pul Vascular exam: PRESENT: normal capillary refill GI/Abdominal exam: PRESENT: normal bowel sounds, soft. ABSENT: distended, guarding, mass, organolmegaly, rebound, tenderness Rectal exam: PRESENT: deferred Extremities exam: PRESENT: +1 edema Musculoskeletal exam: PRESENT: normal inspection Neurological exam: PRESENT: altered, CN II-XII grossly intact Psychiatric exam: PRESENT: flat affect Skin exam: PRESENT: dry, intact, warm. ABSENT: cyanosis, rash Results Laboratory Results: 12/04/16 04:26 12/05/16 10:15 Impressions: Abdomen/Pelvis CT 12/02/16 19:10 IMPRESSION: New 9 mm calcified stone in the right renal pelvis. Persistent 10 mm stone is present in the left renal pelvis. No acute ureteral stone or urinary obstruction. KUB X-Ray 12/04/16 00:00 IMPRESSION: NO RADIOGRAPHIC EVIDENCE FOR ACUTE ABDOMINAL DISEASE. SATISFACTORY POSITION OF JEJUNOSTOMY TUBE. Transfer Plan - Disposition Transfer Plan: Transfer to [facility] Plan Time Spent: Less than 30 Minutes
== END 2016-12-09 15:30 | disposition hospice, inpatient (51) | DRG 394 ==
LOC: ER 12:57 → EH 21:45 → UNDOADMIN 21:45 → EH 12-03 01:21 → 5 12-03 04:26
PROVIDERS: ADMIT Family Medicine; ATTEND Family Medicine
DX: K94.19 Other complications of enterostomy (principal); N39.0 Urinary tract infection, site not specified; E87.0 Hyperosmolality and hypernatremia; I69.359 Hemiplegia and hemiparesis following cerebral infarction affecting unspecified side; Z43.1 Encounter for attention to gastrostomy; E11.9 Type 2 diabetes mellitus without complications; R31.9 Hematuria, unspecified; I10 Essential (primary) hypertension; N20.0 Calculus of kidney; Y84.8 Other medical procedures as the cause of abnormal reaction of the patient, or of later complication, without mention of misadventure at the time of the procedure; Z66 Do not resuscitate; I69.320 Aphasia following cerebral infarction; I69.391 Dysphagia following cerebral infarction; I48.91 Unspecified atrial fibrillation; E78.00 Pure hypercholesterolemia, unspecified; K21.9 Gastro-esophageal reflux disease without esophagitis; M19.90 Unspecified osteoarthritis, unspecified site; D64.9 Anemia, unspecified; E78.5 Hyperlipidemia, unspecified; F32.9 Major depressive disorder, single episode, unspecified; Z79.82 Long term (current) use of aspirin; Z79.899 Other long term (current) drug therapy; Z88.8 Allergy status to other drugs, medicaments and biological substances; Z88.0 Allergy status to penicillin; Z74.01 Bed confinement status; Z86.73 Personal history of transient ischemic attack (TIA), and cerebral infarction without residual deficits
CPT/HCPCS: 36415; 74000; 74176; 80048; 80053; 81001; 83605; 83735; 83880; 84484; 85025; 85027; 87040; 87086; 87088; 87186; 93005; 93010; 96365; 99285; J0696; J1335; J2270; J3480; J3490; J7030